=== PATIENT | male | born 1950 | race Two or more races ===

== ENCOUNTER 2017-03-31 01:24 | Inpatient (IN) | payer OTHER ==
[~2017-03-31] VITALS: Ht 172.7 cm; Wt 78.0 kg
[~2017-03-31 01:24] MED LIST: CITA-73 PO; CLON0.3T PO; TRAZ100T2 PO
[2017-03-31] MEDS ORDERED: IBUPROFEN 600 MG TAB PO ONE (01:45)
[2017-03-31] MEDS ORDERED: cefTRIAXone SOD 1,000 MG VL IM ONE (03:00)
[2017-03-31 03:16] LABS: Hemoglobin 14.5 g/dL (13.5-17.5)
[2017-03-31 03:17] LABS: Basophils # (auto) 0 uL; Basophils % (auto) 0.2 % (0.0-2.0); Eosinophils # (auto) 0 uL; Lymphocytes # (auto) 5.2 uL; Lymphocytes % (auto) 35.6 % (10.0-50.0); Mean Corpuscular Hemoglobin 34.8 pg (28.0-32.0); Mean Corpuscular Hgb Conc. 34.5 g/dL (32.0-36.0); Monocytes # (auto) 0.8 uL; Monocytes % (auto) 5.8 % (0.0-12.0); Neutrophils # (auto) 8.5 uL; Neutrophils % (auto) 58.4 % (37.0-80.0); Nucleated Red Blood Cells % 0.4 %; Platelet Count (auto) 122 10^3/uL (140-450); Red Blood Cells 4.15 10^6/uL (4.5-5.90); Red Cell Distribution Width 12.8 % (11.8-14.3); White Blood Cell 14.5 10^3/uL (4.4-10.8)
[2017-03-31 05:07] LABS: Alanine Aminotransferase 25 U/L (16-61); Albumin 3.6 g/dL (3.4-5.0); Anion Gap 10 (5-15); Aspartate Aminotransferase 23 U/L (15-37); BUN/Creatinine Ratio 22.3; Blood Urea Nitrogen 21 mg/dL (7-18); Calcium 8.1 mg/dL (8.5-10.1); Carbon Dioxide 21 mmol/L (21-32); Chloride 106 mmol/L (98-107); GFR African American 104 mL/min; GFR Non-African American 86 mL/min; Glucose 111 mg/dL (74-106); Potassium 3.5 mmol/L (3.5-5.1); Sodium 137 mmol/L (136-145)
[2017-03-31 05:12] LABS: Alkaline Phosphatase 69 U/L (45-117); Bilirubin, Total 0.8 mg/dL (0.2-1.0); Total Protein 7.3 g/dL (6.4-8.2)
[2017-03-31 05:24] LABS: INR 1.02 (0.9-1.15); Partial Thromboplastin Time 35.2 sec (22.64-33.71); Prothrombin Time 11.1 sec (9.37-12.3)
[2017-03-31] MEDS ORDERED: ACETAMINOPHEN 325 MG TAB PO PRN (06:30)
[2017-03-31] MEDS ORDERED: TEMAZEPAM 15 MG CAP PO PRN (06:30)
[2017-03-31] MEDS ORDERED: HYDROcodone-ACET 5/325MG TAB PO PRN (06:30)
[2017-03-31] MEDS ORDERED: ALBUTEROL SULF 2.5 MG/0.5ML(0.5%) NEB SOLN NEB PRN (06:30)
[2017-03-31] MEDS ORDERED: ONDANSETRON HCL 4 MG/2 ML VIAL IV PRN (06:30)
[2017-03-31] MEDS ORDERED: methylPREDNISolone SOD SUCC 125 MG/2 ML VL IV ONE (06:30)
[2017-03-31] MEDS ORDERED: SODIUM CHLORIDE 0.9% 500 ML IV ONE (06:45)
[2017-03-31 06:55] VITALS: BP 101/62
[2017-03-31] MEDS: SODIUM CHLORIDE 0.9% 1,000 ML IV SCH ×2 (07:00→22:09)
[2017-03-31] MEDS: CITALOPRAM HYDROBR 20 MG TAB PO SCH (10:05)
[2017-03-31] MEDS: cloNIDine HCL 0.1 MG TAB PO SCH (10:05)
[2017-03-31] MEDS: FAMOTIDINE 20 MG TAB PO SCH ×2 (10:05→21:46)
[2017-03-31] MEDS: ENOXAPARIN SOD 40 MG/0.4 ML SYRINGE SC SCH (10:20)
[2017-03-31] MEDS: LEVOFLOXACIN 750MG 150 ML IV SCH (10:51)
[2017-03-31 19:50] VITALS: BP 129/63
[2017-03-31] MEDS: methylPREDNISolone SOD SUCC 125 MG/2 ML VL IV SCH (21:47)
[2017-03-31] MEDS ORDERED: traZODone HCL 50 MG TAB PO SCH (22:00)
[2017-03-31 22:55] VITALS: BP 129/63
[2017-03-31] MEDS ORDERED: PNEUMOCOCCAL VACC POLYS 25 MCG/0.5 ML VIAL IM ONE (23:45)
[2017-03-31] MEDS ORDERED: INFLUENZA QUAD 2017-2018 0.5 ML SYRG IM ONE (23:45)
[2017-04-01 00:07] LABS: Urine Bacteria NONE SEEN /hpf (None Seen); Urine Blood Negative /uL (Negative); Urine Mucus FEW (None Seen); Urine WBC 1 /hpf (0 - 3)
[2017-04-01 05:38] VITALS: BP 136/76
[2017-04-01 07:17] LABS: Basophils # (auto) 0 uL; Eosinophils # (auto) 0 uL; Red Blood Cells 3.77 10^6/uL (4.5-5.90)
[2017-04-01 07:19] LABS: Basophils % (auto) 0.1 % (0.0-2.0); Hematocrit 38.6 % (41.0-53.0); Hemoglobin 13.2 g/dL (13.5-17.5); Lymphocytes % (auto) 32.6 % (10.0-50.0); Mean Corpuscular Hemoglobin 34.9 pg (28.0-32.0); Mean Corpuscular Hgb Conc. 34.1 g/dL (32.0-36.0); Mean Corpuscular Volume 102.3 fL (80.0-100.0); Monocytes # (auto) 0.5 uL; Monocytes % (auto) 2.4 % (0.0-12.0); Neutrophils % (auto) 64.9 % (37.0-80.0); Nucleated Red Blood Cells % 0.3 %; Platelet Count (auto) 120 10^3/uL (140-450); Red Cell Distribution Width 12.8 % (11.8-14.3); White Blood Cell 21.6 10^3/uL (4.4-10.8)
[2017-04-01 07:44] LABS: Albumin 2.9 g/dL (3.4-5.0); BUN/Creatinine Ratio 29.7; Bilirubin, Total 0.4 mg/dL (0.2-1.0); Potassium 3.3 mmol/L (3.5-5.1); Total Protein 6.3 g/dL (6.4-8.2)
[2017-04-01] MEDS ORDERED: POTASSIUM CHL 20 Meq TABLET PO ONE (08:30)
[2017-04-01 08:53] VITALS: BP 161/88
[2017-04-01] MEDS: SODIUM CHLORIDE 0.9% 1,000 ML IV SCH (09:02)
[2017-04-01] MEDS: LEVOFLOXACIN 750MG 150 ML IV SCH (09:49)
[2017-04-01] MEDS: FAMOTIDINE 20 MG TAB PO SCH (09:57)
[2017-04-01] MEDS: CITALOPRAM HYDROBR 20 MG TAB PO SCH (09:57)
[2017-04-01] MEDS: methylPREDNISolone SOD SUCC 125 MG/2 ML VL IV SCH (09:58)
[2017-04-01] MEDS: ENOXAPARIN SOD 40 MG/0.4 ML SYRINGE SC SCH (10:00)
[2017-04-01] MEDS: cloNIDine HCL 0.1 MG TAB PO SCH (10:00)
== END 2017-04-01 13:56 | disposition home or self-care (01) | DRG 871 ==
LOC: ER 01:26 → OVERFLOW 01:27 → CENTRAL 19:50
PROVIDERS: ADMIT Nurse Practitioner; ATTEND Internal Medicine
DX: A41.9 Sepsis, unspecified organism (principal); J18.9 Pneumonia, unspecified organism; J98.11 Atelectasis; E87.6 Hypokalemia; F32.9 Major depressive disorder, single episode, unspecified; I10 Essential (primary) hypertension; I70.0 Atherosclerosis of aorta; Z28.21 Immunization not carried out because of patient refusal; Z80.9 Family history of malignant neoplasm, unspecified
CPT/HCPCS: 36415; 71046; 80053; 81001; 84484; 85025; 85610; 85730; 87040; 87400; 96372; 96374; 96375; J0696; J1956

== ENCOUNTER 2020-01-27 13:40 | Inpatient (IN) | payer OTHER ==
[~2020-01-27] VITALS: Ht 172.7 cm; Wt 85.6 kg
[~2020-01-27 13:40] MED LIST changes: -TRAZ100T2 PO; +TRAZ100T3 PO
[2020-01-27 14:18] LABS: Red Cell Distribution Width 13.4 % (11.8-14.3)
[2020-01-27 14:20] LABS: Hematocrit 43.9 % (41.0-53.0); Mean Corpuscular Hemoglobin 35.7 pg (28.0-32.0); Mean Corpuscular Hgb Conc. 34.3 g/dL (32.0-36.0); Mean Corpuscular Volume 104.2 fL (80.0-100.0); Platelet Count (auto) 157 10^3/uL (140-450); Red Blood Cells 4.22 10^6/uL (4.5-5.90)
[2020-01-27 14:29] LABS: White Blood Cell 33.6 10^3/uL (4.4-10.8)
[2020-01-27 14:31] LABS: Band Neutrophils % (manual) 0; Basophils % (manual) 0 (0.0-2.0); Blast Cells 0; Eosinophils % (manual) 0 (0-7); Metamyelocytes % 0; Myelocytes % 0; Promyelocytes % 0
[2020-01-27 14:35] LABS: Anion Gap 2 (5-15); Blood Urea Nitrogen 16 mg/dL (7-18); Calcium 8.7 mg/dL (8.5-10.1); Carbon Dioxide 26 mmol/L (21-32); Chloride 109 mmol/L (98-107); Glucose 119 mg/dL (74-106); Potassium 4.3 mmol/L (3.5-5.1); Sodium 137 mmol/L (136-145)
[2020-01-27 14:40] LABS: Alanine Aminotransferase 24 U/L (16-61); Alkaline Phosphatase 102 U/L (45-117); Aspartate Aminotransferase 17 U/L (15-37); BUN/Creatinine Ratio 14.7; Bilirubin, Total 0.4 mg/dL (0.2-1.0); GFR African American 87 mL/min; GFR Non-African American 72 mL/min; Total Protein 7.1 g/dL (6.4-8.2)
[2020-01-27 14:55] LABS: Lymphocytes % (manual) 57 (10.0-50.0); Monocytes % (manual) 4 (0-12); Reactive Lymphocytes 20
[2020-01-27] MEDS ORDERED: ASPirin 81 mg TAB PO ONE (17:00)
[2020-01-27] MEDS ORDERED: NITROGLYCERIN 0.4 MG SL TAB SL PRN ×2 (19:00→19:15)
[2020-01-27] MEDS ORDERED: LACTATED RINGER'S 1,000 ML IV ONE (19:00)
[2020-01-27] MEDS ORDERED: ENOXAPARIN SOD 40 MG/0.4 ML SYRINGE SC ONE (19:00)
[2020-01-27] MEDS ORDERED: MORPHINE SULF INJ 2 MG/ML SYRINGE 1ML IV PRN ×3 (19:00→19:15)
[2020-01-27] MEDS ORDERED: CLON-818 PO (19:11)
[2020-01-27] MEDS ORDERED: OLAN2.5T38 PO (19:11)
[2020-01-27] MEDS ORDERED: OMEG306C PO (19:11)
[2020-01-27] MEDS ORDERED: TRAZ-181 PO (19:11)
[2020-01-27] MEDS ORDERED: MULT1TAB65 PO (19:11)
[2020-01-27] MEDS ORDERED: ONDANSETRON HCL 4 MG/2 ML VIAL IV PRN (19:15)
[2020-01-27] MEDS ORDERED: ALUM & MAG HYDROX-SIMETH LIQ(MAALOX) 30 ML PO PRN (19:15)
[2020-01-27] MEDS ORDERED: ACETAMINOPHEN 325 MG TAB PO PRN (19:15)
[2020-01-27] MEDS ORDERED: LORazepam 0.5 MG TAB PO PRN (19:15)
[2020-01-27] MEDS ORDERED: DOCUSATE SOD 100 MG CAP PO PRN (19:15)
[2020-01-27] MEDS ORDERED: ALBUTEROL SULF 2.5 MG/0.5ML(0.5%) NEB SOLN NEB PRN (19:15)
[2020-01-27] MEDS ORDERED: methylPREDNISolone SOD SUCC 125 MG/2 ML VL IV ONE (19:15)
[2020-01-27] MEDS ORDERED: METOPROLOL SUCCINATE XL 50 MG TAB PO ONE (19:15)
[2020-01-27] MEDS ORDERED: cefTRIAXone 1GM/50ML D5W 50 ML IV ONE (19:15)
[2020-01-27] MEDS ORDERED: hydrALAZINE HCL 25 MG TAB PO PRN (19:15)
[2020-01-27] MEDS ORDERED: IPRATROPIUM BROM 0.5 MG/2.5ML INH SOL NEB ONE (19:15)
[2020-01-27] MEDS ORDERED: HYDROcodone-ACET 5/325MG TAB PO PRN (19:15)
[2020-01-27] MEDS ORDERED: AZITHROMYCIN 500MG/ 250ML 250 ML IV ONE (20:00)
[2020-01-27 20:04] LABS: Cholesterol 179 mg/dL (< 200)
[2020-01-27 20:07] LABS: HDL Cholesterol 32 mg/dL (40-59); LDL Cholesterol 125 mg/dL (< 100); Triglycerides 175 mg/dL (< 150)
[2020-01-27] MEDS: SODIUM CHLORIDE 0.9% 1,000 ML IV SCH (20:17)
[2020-01-27] MEDS ORDERED: IPRATROPIUM BROM 0.5 MG/2.5ML INH SOL NEB PRN (20:45)
[2020-01-27 20:57] LABS: INR 1.02 (0.9-1.15)
[2020-01-27 21:07] LABS: Urine Bacteria FEW /hpf (None Seen); Urine Blood Negative /uL (Negative); Urine Mucus FEW (None Seen); Urine Specific Gravity 1.019 (1.001-1.035); Urine WBC 1 /hpf (0 - 3)
[2020-01-27 21:20] LABS: Amphetamine Screen, Urine NEGATIVE (NEGATIVE); Barbiturate Scree,Urine NEGATIVE (NEGATIVE); Benzodiazephine Screen, Urine NEGATIVE (NEGATIVE); Cannabinoid Screen, Urine NEGATIVE (NEGATIVE); Cocaine Screen, Urine NEGATIVE (NEGATIVE); Opiate Scree,Urine NEGATIVE (NEGATIVE); Phencyclidine Screen, Urine NEGATIVE (NEGATIVE)
[2020-01-27] MEDS ORDERED: IPRATROPIUM BROM 0.5 MG/2.5ML INH SOL NEB SCH (22:00)
[2020-01-27] MEDS: methylPREDNISolone SOD SUCC 40 MG/ML VL IV SCH (22:45)
[2020-01-27] MEDS: traZODone HCL 50 MG TAB PO SCH (22:45)
[2020-01-27] MEDS: ATORVASTATIN 20 MG TAB PO SCH (22:45)
[2020-01-28] VITALS (10 sets, daily range): BP systolic 120–142; BP diastolic 69–89
--- NOTE | 2020-01-28 00:50 | NUR ---
pt got to floor from ED
[2020-01-28] MEDS: methylPREDNISolone SOD SUCC 40 MG/ML VL IV SCH ×3 (05:45→20:40)
[2020-01-28] MEDS ORDERED: FUROSEMIDE 20 MG/2 ML VIAL IV SCH (06:00)
--- NOTE | 2020-01-28 07:35 | NUR ---
Opening Shift Note Assumed care of patient, awake and alert. No S/S of distress/SOB or pain. Instructed on POC and to call for assist PRN, will continue to monitor for changes Q1hr and PRN.
--- NOTE | 2020-01-28 07:40 | NUR ---
closing note endorsed care to day RN, denies pain/distress at this time
--- NOTE | 2020-01-28 07:45 | NUR ---
pt set up a password
[2020-01-28] MEDS: cefTRIAXone 1GM/50ML D5W 50 ML IV SCH (09:11)
[2020-01-28] MEDS: SODIUM CHLORIDE 0.9% 1,000 ML IV SCH (09:11)
[2020-01-28] MEDS ORDERED: OLANZapine 5 MG TAB PO SCH (10:00)
[2020-01-28] MEDS: AZITHROMYCIN 500MG/ 250ML 250 ML IV SCH (10:25)
[2020-01-28] MEDS: MULTIPLE VITAMINS W/ MINERALS TAB PO SCH (10:25)
[2020-01-28] MEDS: ASPirin 81 mg TAB PO SCH (10:25)
[2020-01-28] MEDS: ENOXAPARIN SOD 40 MG/0.4 ML SYRINGE SC SCH (10:26)
[2020-01-28] MEDS ORDERED: IOHEXOL 350 MG/ML 100ML IJ ONE (11:12)
--- NOTE | 2020-01-28 11:16 | NUR ---
ROUNDS Dr Cunningham rounding on patient. Plan of care discussed including lab values, test results and new orders. Will carry out new orders. Cardio consult called into Dr Hearn by health unit supervisor.
--- NOTE | 2020-01-28 11:30 | NUR ---
COVID SWAB Call placed to lab for COVID swab, will obtain test once delivered.
--- NOTE | 2020-01-28 11:37 | NUR ---
RT NOTE: PRN BREATHING TX. NOT INDICATED AT THIS TIME. PT. DENIES ANY SOB. PT. HR 79, RR 20, POX 97% ON 3L N/C. BREATH SOUNDS ARE DIMINISHED T/O. PT. AWARE TO NOTIFY RN IF BREATHING TX. IS NEEDED.
--- NOTE | 2020-01-28 11:53 | NUR ---
CT Patient leaving unit via wheelchair for CT test. Will continue care once patient returns to unit.
--- NOTE | 2020-01-28 12:10 | NUR ---
CT/COVID Patient returned to unit. CT scan completed. COVID swab obtained and walked to lab.
--- NOTE | 2020-01-28 14:20 | NUR ---
ECHO ECHO performed at bedside.
--- NOTE | 2020-01-28 18:54 | NUR ---
Respiratory note: ASSESSED PT FOR PRN MED NEB TX. PT IS CURRENTLY ON 3 L/M NC: HR 77, RT 18, SPO2 95%. PT SHOWS NO S/S OF SOB OR RESPIRATORY DISTRESS. MED NEB TX NOT INDICATED AT THIS TIME. WILL CONTINUE TO MONITOR
--- NOTE | 2020-01-28 19:00 | NUR ---
SHIFT CHANGE Will continue care for patient. Patient sitting in bed watching TV. IV lines flushed and patent. Call light in reach.
[2020-01-28] MEDS: traZODone HCL 50 MG TAB PO SCH (20:40)
[2020-01-28] MEDS: ATORVASTATIN 20 MG TAB PO SCH (20:41)
--- NOTE | 2020-01-28 21:30 | NUR ---
Patient asking to continue home medication "clonidine", unsure of dose stating "I think 10". Patient does not have orders for medication at this time. Spoke with Dr Stan Leahy, telephone order read back and noted.
[2020-01-28] MEDS: cloNIDine HCL 0.1 MG TAB PO SCH (21:55)
--- NOTE | 2020-01-29 03:25 | NUR ---
ASSUMED CARE OF PATIENT PATIENT RESTING WITH EYES CLOSED. NO S/S OF DISTRESS OR SOB. BED LOCKED IN LOWEST POSITION, SIDE RAILS UP X2, CALL LIGHT IS IN REACH. WILL CONTINUE TO MONITOR FOR CHANGES.
[2020-01-29 05:00] VITALS: BP 126/71
[2020-01-29 06:03] LABS: Hemoglobin 13.5 g/dL (13.5-17.5); Red Cell Distribution Width 13.6 % (11.8-14.3)
[2020-01-29 06:06] LABS: Hematocrit 39.2 % (41.0-53.0); Mean Corpuscular Hemoglobin 36.1 pg (28.0-32.0); Mean Corpuscular Hgb Conc. 34.5 g/dL (32.0-36.0); Mean Corpuscular Volume 104.8 fL (80.0-100.0); Platelet Count (auto) 147 10^3/uL (140-450); Red Blood Cells 3.74 10^6/uL (4.5-5.90)
[2020-01-29] MEDS: methylPREDNISolone SOD SUCC 40 MG/ML VL IV SCH (06:08)
[2020-01-29 06:37] LABS: Basophils % (manual) 0 (0.0-2.0); Blast Cells 0; Eosinophils % (manual) 0 (0-7); Metamyelocytes % 0; Myelocytes % 0; Promyelocytes % 0; Reactive Lymphocytes 0
--- NOTE | 2020-01-29 06:40 | NUR ---
SPOKE WITH LAB REGARDING CRITICAL WBC LEVEL OF 49.0 PAGED TO UPDATE
--- NOTE | 2020-01-29 07:28 | NUR ---
Respiratory note: PT AWAKE, AND ALERT. NO RESPIRATORY DISTRESS NOTED. SPO2 96% ON 3L NC, HR 76, RR 18, BS CLEAR/DIMINISHED BILATERALLY. PRN MEDNEB TX NOT INDICATED AT THIS TIME. PT INFORMED TO PUSH CALL BUTTON IF INCREASED WOB, SOB, OR WHEEZING OCCURS. WILL CONTINUE TO MONITOR PT.
[2020-01-29 08:03] LABS: Band Neutrophils % (manual) 1; Lymphocytes % (manual) 79 (10.0-50.0); Monocytes % (manual) 4 (0-12)
[2020-01-29] MEDS: cefTRIAXone 1GM/50ML D5W 50 ML IV SCH (08:47)
[2020-01-29] MEDS: ENOXAPARIN SOD 40 MG/0.4 ML SYRINGE SC SCH (08:47)
[2020-01-29] MEDS: ASPirin 81 mg TAB PO SCH (08:48)
[2020-01-29] MEDS: MULTIPLE VITAMINS W/ MINERALS TAB PO SCH (08:48)
[2020-01-29 09:00] VITALS: BP 121/79
[2020-01-29] MEDS: AZITHROMYCIN 500MG/ 250ML 250 ML IV SCH (10:24)
[2020-01-29 13:00] VITALS: BP 128/67
[2020-01-29] MEDS ORDERED: ADENOSINE 72 MG in GIVE UN-DILUTED 0 ML IV STA (13:40)
[2020-01-29 17:00] VITALS: BP 134/71
--- NOTE | 2020-01-29 19:45 | NUR ---
PT ASSESSED, NO SOB NOTED. BS DIMINISHED BILATERALLY. PRN TX NOT INDICATED AT THIS TIME.
[2020-01-29] MEDS: OLANZapine 5 MG TAB PO SCH (20:02)
[2020-01-29] MEDS: ATORVASTATIN 20 MG TAB PO SCH (21:43)
[2020-01-29] MEDS: traZODone HCL 50 MG TAB PO SCH (21:43)
[2020-01-29] MEDS: cloNIDine HCL 0.1 MG TAB PO SCH (21:49)
[2020-01-29 22:00] VITALS: BP 134/80
[2020-01-30 05:00] VITALS: BP 104/71
--- NOTE | 2020-01-30 07:05 | NUR ---
PRN [place] TX NOT INDICATED AT THIS TIME. PT IS AWAKE, ALERT AND ORIENTED. PT IS ON RA, 94% O2 SATS, HR 81 BPM, BS ARE CLEAR TO AUSCULTATION. RESPIRATION IS EVEN AND NON LABORED. PT DENIES SOB OR ANY OTHER RESPIRATORY DISTRESS. PT INSTRUCTED TO CALL IF [place] TX IS INDICATED. PT VERBALIZED UNDERSTANDING. WILL CONTINUE TO MONITOR PT.
--- NOTE | 2020-01-30 07:35 | NUR ---
OPENING SHIFT NOTE ASSUMED CARE OF PATIENT, AWAKE AND ALERT. NO S/S OF DISTRESS OR SOB, NO PAIN NOTED. UPDATED ON POC AND INSTRUCTED TO CALL FOR ASSISTANCE, PATIENT VERBALIZED UNDERSTANDING. BED LOCKED IN LOWEST POSITION, SIDE RAILS UP X2, CALL LIGHT IS IN REACH. WILL CONTINUE TO MONITOR FOR CHANGES.
[2020-01-30] MEDS: ENOXAPARIN SOD 40 MG/0.4 ML SYRINGE SC SCH (08:59)
[2020-01-30] MEDS: cefTRIAXone 1GM/50ML D5W 50 ML IV SCH (08:59)
[2020-01-30] MEDS: ASPirin 81 mg TAB PO SCH (08:59)
[2020-01-30] MEDS: MULTIPLE VITAMINS W/ MINERALS TAB PO SCH (08:59)
[2020-01-30] MEDS: AZITHROMYCIN 500MG/ 250ML 250 ML IV SCH (08:59)
[2020-01-30 09:00] VITALS: BP 112/66
[2020-01-30 13:00] VITALS: BP 116/67
[2020-01-30 17:21] VITALS: BP 128/76
[2020-01-30] MEDS: ATORVASTATIN 20 MG TAB PO SCH (21:28)
[2020-01-30] MEDS: traZODone HCL 50 MG TAB PO SCH (21:28)
[2020-01-30] MEDS: cloNIDine HCL 0.1 MG TAB PO SCH (21:29)
[2020-01-30] MEDS: OLANZapine 5 MG TAB PO SCH (21:30)
[2020-01-30 22:00] VITALS: BP 128/78
[2020-01-31 04:28] VITALS: BP 122/72
[2020-01-31 05:00] VITALS: BP 102/59
--- NOTE | 2020-01-31 06:06 | NUR ---
RT NOTE PRN MED NEB TX NOT INDICATED AT THIS TIME. NO SIGNS OR SYMPTOMS OF RESPIRATORY DISTRESS NOTED. HR 89, RR 14, SPO2 95% ON RA, BS CLEAR.
--- NOTE | 2020-01-31 07:30 | NUR ---
Opening Shift Note Assumed care of patient, awake and alert. No S/S of distress/SOB or pain on room air. Instructed on POC and to call for assist PRN, will continue to monitor for changes Q1hr and PRN. Bed in low and locked position, rails up x2, no-slip socks on.
[2020-01-31 08:43] VITALS: BP 135/70
--- NOTE | 2020-01-31 09:00 | NUR ---
FAMILY CALL SPOKE TO PATIENTS DAUGHTER NATALEE, PASSWORD PROVIDED, UPDATED ON PLAN OF CARE, ALL QUESTIONS ANSWERED.
[2020-01-31] MEDS: MULTIPLE VITAMINS W/ MINERALS TAB PO SCH (09:28)
[2020-01-31] MEDS: ENOXAPARIN SOD 40 MG/0.4 ML SYRINGE SC SCH (09:28)
[2020-01-31] MEDS: ASPirin 81 mg TAB PO SCH (09:28)
--- NOTE | 2020-01-31 10:50 | NUR ---
DR Venita GONZALEZ AT BEDSIDE ORDERS FOR DISCHARGE, PRESCRIPTION FOR LIPITOR 40MG QHS WRITTEN.
--- NOTE | 2020-01-31 10:55 | NUR ---
Nutrition Assessment Est energy needs 4840-7658 kcal (20-25 kcal/kg BW 85.6kg) Est protein needs 68-86g (0.8-1g/kg BW 85.6kg) Will reassess prn. Addendum: 01/31/20 at [address] Amended: Links added.
[2020-01-31 11:05] VITALS: BP 135/70
--- NOTE | 2020-01-31 12:41 | NUR ---
DISCHARGE Discharge instructions given as ordered. Encourage to follow up with PMD as instructed. All questions and concerns addressed. Patient verbalized understanding. Medication reconciliation form completed and copy given to patient. IV removed with catheter intact, pressure dressing applied. Telemetry unit returned to ICU. Patient taken to vehicle via wheelchair with all personal belongings, accompanied by staff to family member. No distress noted at time of departure.
[2020-01-31 12:46] VITALS: BP 137/85
== END 2020-01-31 12:40 | disposition home or self-care (01) | DRG 190 ==
LOC: ER 13:40 → TELE 13:41 → TELE-WESTW 23:47
PROVIDERS: ADMIT Hospitalist; ATTEND Family Medicine
DX: J44.1 Chronic obstructive pulmonary disease with (acute) exacerbation (principal); J18.9 Pneumonia, unspecified organism; C91.10 Chronic lymphocytic leukemia of B-cell type not having achieved remission; J44.0 Chronic obstructive pulmonary disease with (acute) lower respiratory infection; F32.9 Major depressive disorder, single episode, unspecified; E78.5 Hyperlipidemia, unspecified; I10 Essential (primary) hypertension; E78.00 Pure hypercholesterolemia, unspecified; K21.9 Gastro-esophageal reflux disease without esophagitis; E66.3 Overweight; F17.200 Nicotine dependence, unspecified, uncomplicated; F03.90 Unspecified dementia, unspecified severity, without behavioral disturbance, psychotic disturbance, mood disturbance, and anxiety; Z20.828 Contact with and (suspected) exposure to other viral communicable diseases; Z79.899 Other long term (current) drug therapy; Z83.3 Family history of diabetes mellitus; Z85.828 Personal history of other malignant neoplasm of skin
CPT/HCPCS: 36415; 71046; 71275; 78452; 80053; 80061; 80307; 81001; 83036; 83605; 83735; 83880; 84443; 84484; 85007; 85027; 85379; 85540; 85610; 85730; 87040; 87086; 93005; 93017; 93306; 93970; 94640; 96365; 96368; 96372; 96375; G0378; J0153; J0696

== ENCOUNTER 2020-08-30 19:34 | Emergency (ER) | payer OTHER ==
[~2020-08-30] VITALS: Ht 172.7 cm; Wt 81.6 kg
[~2020-08-30 19:34] MED LIST changes: -CITA-73 PO; +CLON-818 PO; -CLON0.3T PO; +MULT1TAB65 PO; +OLAN2.5T38 PO; +OMEG306C PO; +TRAZ-181 PO; -TRAZ100T3 PO
[2020-08-30 19:54] VITALS: BP 118/76
== END 2020-08-30 20:26 | disposition home or self-care (01) ==
LOC: ER 19:39
DX: H57.89 Other specified disorders of eye and adnexa (principal); Z79.899 Other long term (current) drug therapy

== ENCOUNTER 2021-03-30 15:42 | Inpatient (IN) | payer OTHER ==
[~2021-03-30] VITALS: Ht 172.7 cm; Wt 74.0 kg
[2021-03-30 16:52] LABS: Hematocrit 37.2 % (41.0-53.0); Hemoglobin 12.9 g/dL (13.5-17.5); White Blood Cell 27.6 10^3/uL (4.4-10.8)
[2021-03-30 16:54] LABS: Mean Corpuscular Hemoglobin 35.5 pg (28.0-32.0); Mean Corpuscular Hgb Conc. 34.8 g/dL (32.0-36.0); Red Blood Cells 3.64 10^6/uL (4.5-5.90); Red Cell Distribution Width 13.8 % (11.8-14.3)
[2021-03-30 16:57] LABS: Band Neutrophils % (manual) 0; Basophils % (manual) 0 (0.0-2.0); Blast Cells 0; Eosinophils % (manual) 0 (0-7); Metamyelocytes % 0; Myelocytes % 0; Promyelocytes % 0
[2021-03-30 17:08] LABS: Albumin 3.2 g/dL (3.4-5.0); Calcium 7.9 mg/dL (8.5-10.1)
[2021-03-30 17:13] LABS: BUN/Creatinine Ratio 19.3; Bilirubin, Total 0.5 mg/dL (0.2-1.0); Total Protein 6.8 g/dL (6.4-8.2)
[2021-03-30 17:38] LABS: Lymphocytes % (manual) 76 (10.0-50.0); Monocytes % (manual) 2 (0-12); Reactive Lymphocytes 10
[2021-03-30] MEDS ORDERED: cefTRIAXone 1GM/50ML D5W 50 ML IV ONE (18:15)
[2021-03-30] MEDS ORDERED: AZITHROMYCIN 500MG/ 250ML 250 ML IV ONE (18:15)
[2021-03-30] MEDS ORDERED: DexAMETHasone SOD PHOS 10MG/1ML VIAL INJ IV ONE (18:15)
[2021-03-30] MEDS ORDERED: DOCUSATE SOD 100 MG CAP PO PRN (20:30)
[2021-03-30] MEDS ORDERED: ACETAMINOPHEN 500 MG TAB PO PRN (20:30)
[2021-03-30] MEDS ORDERED: ONDANSETRON HCL 4 MG/2 ML VIAL IV PRN (20:30)
[2021-03-30] MEDS: BUDESONIDE (INHALATION) 180 MCG IH IN SCH (22:00)
[2021-03-30] MEDS: FAMOTIDINE (10MG/ML) 2ML VL IV SCH (22:40)
[2021-03-30] MEDS ORDERED: NITROGLYCERIN 0.4 MG SL TAB SL PRN (22:45)
[2021-03-30] MEDS ORDERED: MORPHINE SULFATE INJECTION 2 MG/ML SYRG IV PRN (22:45)
[2021-03-30] MEDS: SODIUM CHLORIDE 0.9% 1,000 ML IV SCH (23:01)
[2021-03-31] MEDS: ALBUTEROL SULF HFA 90MCG INH 200DOSE IN PRN ×2 (06:08→19:20)
[2021-03-31] MEDS: BUDESONIDE (INHALATION) 180 MCG IH IN SCH ×2 (06:08→19:20)
[2021-03-31 08:43] LABS: Hemoglobin 13.3 g/dL (13.5-17.5)
[2021-03-31 08:47] LABS: Hematocrit 37.9 % (41.0-53.0); Mean Corpuscular Hemoglobin 35.5 pg (28.0-32.0); Mean Corpuscular Hgb Conc. 35.1 g/dL (32.0-36.0); Mean Corpuscular Volume 101.3 fL (80.0-100.0); Red Blood Cells 3.74 10^6/uL (4.5-5.90); Red Cell Distribution Width 13.6 % (11.8-14.3)
[2021-03-31 08:54] LABS: White Blood Cell 33.2 10^3/uL (4.4-10.8)
[2021-03-31 08:55] LABS: Basophils % (manual) 0 (0.0-2.0); Blast Cells 0; Eosinophils % (manual) 0 (0-7); Metamyelocytes % 0; Myelocytes % 0; Promyelocytes % 0
[2021-03-31 09:00] VITALS: BP 121/69
[2021-03-31 09:08] LABS: Albumin 2.8 g/dL (3.4-5.0); Calcium 8.2 mg/dL (8.5-10.1); Potassium 3.9 mmol/L (3.5-5.1)
[2021-03-31 09:11] LABS: BUN/Creatinine Ratio 23.3; Bilirubin, Total 0.3 mg/dL (0.2-1.0); Total Protein 6.3 g/dL (6.4-8.2)
[2021-03-31] MEDS: cefTRIAXone 1GM/50ML D5W 50 ML IV SCH (10:54)
[2021-03-31] MEDS: FAMOTIDINE (10MG/ML) 2ML VL IV SCH ×2 (10:55→22:26)
[2021-03-31] MEDS: DexAMETHasone SOD PHOS 10MG/1ML VIAL INJ IV SCH (10:55)
[2021-03-31] MEDS: ASCORBIC ACID 1,000 MG TAB PO SCH (10:55)
[2021-03-31] MEDS: ZINC SULFATE 220mg CAP or TAB PO SCH (10:55)
[2021-03-31] MEDS: AZITHROMYCIN 500MG/ 250ML 250 ML IV SCH (10:55)
[2021-03-31] MEDS: MULTIPLE VITAMIN TAB PO SCH (10:55)
[2021-03-31] MEDS: ENOXAPARIN SOD 40 MG/0.4 ML SYRINGE SC SCH (10:56)
[2021-03-31] MEDS: CHOLECALCIFEROL (VITD3) 2,000 UNIT CAP/TAB PO SCH (10:56)
[2021-03-31 13:00] VITALS: BP 131/70
[2021-03-31 14:15] LABS: Band Neutrophils % (manual) 2; Lymphocytes % (manual) 65 (10.0-50.0); Monocytes % (manual) 1 (0-12); Reactive Lymphocytes 15
[2021-03-31] MEDS: SODIUM CHLORIDE 0.9% 1,000 ML IV SCH (14:55)
[2021-03-31] MEDS ORDERED: REMDESIVIR PER PHARMACY 0 ML IV SCH (15:45)
[2021-03-31 17:00] VITALS: BP 141/76
[2021-03-31] MEDS ORDERED: REMDESIVIR 200 MG in NS 210ml LOADING DOSE ADULT IV ONE (18:00)
[2021-03-31 22:00] VITALS: BP 129/73
[2021-04-01] MEDS: ALBUTEROL SULF HFA 90MCG INH 200DOSE IN PRN ×3 (02:39→19:23)
[2021-04-01 05:00] VITALS: BP 129/83
[2021-04-01] MEDS: BUDESONIDE (INHALATION) 180 MCG IH IN SCH ×2 (05:31→19:23)
[2021-04-01 06:17] LABS: Hematocrit 37.3 % (41.0-53.0); Hemoglobin 12.9 g/dL (13.5-17.5); Mean Corpuscular Hemoglobin 35.2 pg (28.0-32.0); Mean Corpuscular Hgb Conc. 34.6 g/dL (32.0-36.0); Mean Corpuscular Volume 101.7 fL (80.0-100.0); Red Blood Cells 3.67 10^6/uL (4.5-5.90); Red Cell Distribution Width 13.6 % (11.8-14.3)
[2021-04-01 06:22] LABS: White Blood Cell 60.7 10^3/uL (4.4-10.8)
[2021-04-01 06:23] LABS: Basophils % (manual) 0 (0.0-2.0); Blast Cells 0; Calcium 8.3 mg/dL (8.5-10.1); Eosinophils % (manual) 0 (0-7); Metamyelocytes % 0; Myelocytes % 0; Promyelocytes % 0
[2021-04-01 06:27] LABS: BUN/Creatinine Ratio 20.8; Bilirubin, Total 0.4 mg/dL (0.2-1.0); Total Protein 6.4 g/dL (6.4-8.2)
[2021-04-01 09:00] VITALS: BP 146/78
[2021-04-01] MEDS: cefTRIAXone 1GM/50ML D5W 50 ML IV SCH (09:15)
[2021-04-01 09:23] LABS: Band Neutrophils % (manual) 3; Lymphocytes % (manual) 83 (10.0-50.0); Monocytes % (manual) 2 (0-12); Reactive Lymphocytes 2
[2021-04-01] MEDS: MULTIPLE VITAMIN TAB PO SCH (09:36)
[2021-04-01] MEDS: DexAMETHasone SOD PHOS 10MG/1ML VIAL INJ IV SCH (09:36)
[2021-04-01] MEDS: FAMOTIDINE (10MG/ML) 2ML VL IV SCH ×2 (09:36→21:39)
[2021-04-01] MEDS: ZINC SULFATE 220mg CAP or TAB PO SCH (09:36)
[2021-04-01] MEDS: ENOXAPARIN SOD 40 MG/0.4 ML SYRINGE SC SCH ×2 (09:37→21:39)
[2021-04-01] MEDS: CHOLECALCIFEROL (VITD3) 2,000 UNIT CAP/TAB PO SCH (09:37)
[2021-04-01] MEDS: ASCORBIC ACID 1,000 MG TAB PO SCH (09:37)
[2021-04-01] MEDS: AZITHROMYCIN 500MG/ 250ML 250 ML IV SCH (10:03)
[2021-04-01] MEDS ORDERED: LATA0.0019 EACHEYE (10:54)
[2021-04-01] MEDS ORDERED: OLANZapine 5 MG TAB PO ONE (12:15)
[2021-04-01 13:00] VITALS: BP 138/85
[2021-04-01] MEDS: PROMETHAZINE W/CODEINE 5 ML ORAL SYRUP PO PRN ×2 (15:33→21:40)
[2021-04-01] MEDS: THROAT LOZENGES(CEPASTAT) MT PRN ×2 (15:46→21:39)
[2021-04-01] MEDS: REMDESIVIR 100mg 100 MG in SODIUM CHL 0.9% 230 ML IV SCH (16:00)
[2021-04-01 17:00] VITALS: BP 151/89
[2021-04-01] MEDS: traZODone HCL 50 MG TAB PO SCH (21:39)
[2021-04-01 22:00] VITALS: BP 151/69
[2021-04-02 05:00] VITALS: BP 145/80
[2021-04-02 06:59] LABS: Hemoglobin 12.5 g/dL (13.5-17.5)
[2021-04-02] MEDS: THROAT LOZENGES(CEPASTAT) MT PRN (07:01)
[2021-04-02] MEDS: PROMETHAZINE W/CODEINE 5 ML ORAL SYRUP PO PRN ×2 (07:01→13:10)
[2021-04-02 07:04] LABS: Albumin 2.7 g/dL (3.4-5.0); Potassium 4.3 mmol/L (3.5-5.1)
[2021-04-02 07:04] LABS: Hematocrit 37.8 % (41.0-53.0); Mean Corpuscular Hemoglobin 33.8 pg (28.0-32.0); Mean Corpuscular Hgb Conc. 33.1 g/dL (32.0-36.0); Mean Corpuscular Volume 102.3 fL (80.0-100.0); Red Blood Cells 3.69 10^6/uL (4.5-5.90); Red Cell Distribution Width 13.7 % (11.8-14.3)
[2021-04-02 07:09] LABS: BUN/Creatinine Ratio 22.8; Bilirubin, Total 0.5 mg/dL (0.2-1.0); Total Protein 6.2 g/dL (6.4-8.2)
[2021-04-02 07:18] LABS: White Blood Cell 62.5 10^3/uL (4.4-10.8)
[2021-04-02 07:19] LABS: Basophils % (manual) 0 (0.0-2.0); Eosinophils % (manual) 0 (0-7); Metamyelocytes % 0; Myelocytes % 0; Promyelocytes % 0
[2021-04-02 08:30] VITALS: BP 149/85
[2021-04-02] MEDS: cefTRIAXone 1GM/50ML D5W 50 ML IV SCH (08:54)
[2021-04-02] MEDS: ALBUTEROL SULF HFA 90MCG INH 200DOSE IN PRN (09:22)
[2021-04-02] MEDS: BUDESONIDE (INHALATION) 180 MCG IH IN SCH ×2 (09:22→21:27)
[2021-04-02] MEDS: FAMOTIDINE (10MG/ML) 2ML VL IV SCH ×2 (10:08→22:26)
[2021-04-02] MEDS: DexAMETHasone SOD PHOS 10MG/1ML VIAL INJ IV SCH (10:08)
[2021-04-02] MEDS: MULTIPLE VITAMIN TAB PO SCH (10:09)
[2021-04-02] MEDS: OLANZapine 5 MG TAB PO SCH (10:09)
[2021-04-02] MEDS: ENOXAPARIN SOD 40 MG/0.4 ML SYRINGE SC SCH ×2 (10:10→22:26)
[2021-04-02] MEDS: ASCORBIC ACID 1,000 MG TAB PO SCH (10:10)
[2021-04-02] MEDS: CHOLECALCIFEROL (VITD3) 2,000 UNIT CAP/TAB PO SCH (10:10)
[2021-04-02] MEDS: ZINC SULFATE 220mg CAP or TAB PO SCH (10:10)
[2021-04-02] MEDS: AZITHROMYCIN 500MG/ 250ML 250 ML IV SCH (10:10)
[2021-04-02 10:20] LABS: Band Neutrophils % (manual) 1; Blast Cells 5; Lymphocytes % (manual) 63 (10.0-50.0); Monocytes % (manual) 2 (0-12); Reactive Lymphocytes 20
[2021-04-02] MEDS: HYDROcodone-ACET 5/325MG TAB PO PRN (11:18)
[2021-04-02 12:30] VITALS: BP 125/66
[2021-04-02] MEDS: REMDESIVIR 100mg 100 MG in SODIUM CHL 0.9% 230 ML IV SCH (15:14)
[2021-04-02 17:00] VITALS: BP 147/80
[2021-04-02] MEDS ORDERED: GENTAMICIN OPTH sol 0.3% 5ml EACHEYE SCH (18:00)
[2021-04-02] MEDS: GENTAMICIN OPTH sol 0.3% 5ml EACHEYE SCH ×2 (18:59→22:26)
[2021-04-02 22:00] VITALS: BP 139/77
[2021-04-02] MEDS: traZODone HCL 50 MG TAB PO SCH (22:26)
[2021-04-03] MEDS: GENTAMICIN OPTH sol 0.3% 5ml EACHEYE SCH ×6 (02:00→22:12)
[2021-04-03 05:24] LABS: Mean Corpuscular Hemoglobin 34.6 pg (28.0-32.0); Mean Corpuscular Hgb Conc. 33.9 g/dL (32.0-36.0)
[2021-04-03 05:29] LABS: Hematocrit 35.7 % (41.0-53.0); Hemoglobin 12.1 g/dL (13.5-17.5); Mean Corpuscular Volume 101.8 fL (80.0-100.0); Red Cell Distribution Width 13.9 % (11.8-14.3)
[2021-04-03 06:10] LABS: Albumin 2.6 g/dL (3.4-5.0)
[2021-04-03 06:13] LABS: BUN/Creatinine Ratio 32.9; Bilirubin, Total 0.7 mg/dL (0.2-1.0); Total Protein 5.5 g/dL (6.4-8.2)
[2021-04-03] MEDS: BUDESONIDE (INHALATION) 180 MCG IH IN SCH ×2 (06:36→19:10)
[2021-04-03] MEDS: ALBUTEROL SULF HFA 90MCG INH 200DOSE IN PRN ×2 (06:37→19:49)
[2021-04-03 06:43] LABS: White Blood Cell 68.2 10^3/uL (4.4-10.8)
[2021-04-03 06:45] LABS: Basophils % (manual) 0 (0.0-2.0); Eosinophils % (manual) 0 (0-7); Metamyelocytes % 0; Myelocytes % 0; Promyelocytes % 0
[2021-04-03 08:27] LABS: Band Neutrophils % (manual) 2; Blast Cells 6; Lymphocytes % (manual) 56 (10.0-50.0); Monocytes % (manual) 1 (0-12); Reactive Lymphocytes 20
[2021-04-03 09:00] VITALS: BP 119/61
[2021-04-03] MEDS: cefTRIAXone 1GM/50ML D5W 50 ML IV SCH (10:30)
[2021-04-03] MEDS: ZINC SULFATE 220mg CAP or TAB PO SCH (10:31)
[2021-04-03] MEDS: FAMOTIDINE (10MG/ML) 2ML VL IV SCH ×2 (10:31→22:13)
[2021-04-03] MEDS: DexAMETHasone SOD PHOS 10MG/1ML VIAL INJ IV SCH (10:31)
[2021-04-03] MEDS: AZITHROMYCIN 500MG/ 250ML 250 ML IV SCH (10:31)
[2021-04-03] MEDS: CHOLECALCIFEROL (VITD3) 2,000 UNIT CAP/TAB PO SCH (10:32)
[2021-04-03] MEDS: MULTIPLE VITAMIN TAB PO SCH (10:32)
[2021-04-03] MEDS: ASCORBIC ACID 1,000 MG TAB PO SCH (10:32)
[2021-04-03] MEDS: OLANZapine 5 MG TAB PO SCH (10:32)
[2021-04-03] MEDS: ENOXAPARIN SOD 40 MG/0.4 ML SYRINGE SC SCH ×2 (10:33→22:13)
[2021-04-03 11:24] LABS: Folate (Folic Acid) 16.54 ng/mL (5.38-24)
[2021-04-03] MEDS ORDERED: POTASSIUM CHL 20 Meq TABLET PO ONE (11:45)
[2021-04-03] MEDS ORDERED: FUROSEMIDE 20 MG/2 ML VIAL IV ONE (11:45)
[2021-04-03] MEDS: REMDESIVIR 100mg 100 MG in SODIUM CHL 0.9% 230 ML IV SCH (16:00)
[2021-04-03 17:30] VITALS: BP 128/78
[2021-04-03 22:00] VITALS: BP 149/91
[2021-04-03] MEDS: traZODone HCL 50 MG TAB PO SCH (22:13)
[2021-04-03] MEDS: PROMETHAZINE W/CODEINE 5 ML ORAL SYRUP PO PRN (22:14)
[2021-04-04] MEDS: GENTAMICIN OPTH sol 0.3% 5ml EACHEYE SCH ×6 (02:12→21:33)
[2021-04-04] MEDS: ALBUTEROL SULF HFA 90MCG INH 200DOSE IN PRN ×2 (05:52→21:37)
[2021-04-04] MEDS: BUDESONIDE (INHALATION) 180 MCG IH IN SCH ×2 (05:52→21:37)
[2021-04-04 06:12] LABS: Hemoglobin 12.5 g/dL (13.5-17.5)
[2021-04-04 06:17] LABS: Hematocrit 37.6 % (41.0-53.0); Mean Corpuscular Hemoglobin 34.1 pg (28.0-32.0); Mean Corpuscular Hgb Conc. 33.3 g/dL (32.0-36.0); Mean Corpuscular Volume 102.4 fL (80.0-100.0); Red Blood Cells 3.67 10^6/uL (4.5-5.90); Red Cell Distribution Width 13.7 % (11.8-14.3)
[2021-04-04 06:25] LABS: White Blood Cell 88.6 10^3/uL (4.4-10.8)
[2021-04-04 06:26] LABS: Band Neutrophils % (manual) 0; Basophils % (manual) 0 (0.0-2.0); Eosinophils % (manual) 0 (0-7); Metamyelocytes % 0; Myelocytes % 0; Promyelocytes % 0
[2021-04-04 06:53] LABS: Potassium 4.2 mmol/L (3.5-5.1)
[2021-04-04 07:05] LABS: Albumin 2.6 g/dL (3.4-5.0); BUN/Creatinine Ratio 34.7; Bilirubin, Total 0.6 mg/dL (0.2-1.0); Calcium 8.2 mg/dL (8.5-10.1); Total Protein 5.5 g/dL (6.4-8.2)
[2021-04-04 08:41] LABS: Lymphocytes % (manual) 73 (10.0-50.0)
[2021-04-04 08:42] LABS: Blast Cells 2; Monocytes % (manual) 1 (0-12); Reactive Lymphocytes 18
[2021-04-04 09:00] VITALS: BP 130/70
[2021-04-04] MEDS: cefTRIAXone 1GM/50ML D5W 50 ML IV SCH (10:56)
[2021-04-04] MEDS: DexAMETHasone SOD PHOS 4 MG/1ML SDV INJ IV SCH (10:57)
[2021-04-04] MEDS: FAMOTIDINE (10MG/ML) 2ML VL IV SCH ×2 (10:57→21:32)
[2021-04-04] MEDS: MULTIPLE VITAMIN TAB PO SCH (10:58)
[2021-04-04] MEDS: ZINC SULFATE 220mg CAP or TAB PO SCH (10:58)
[2021-04-04] MEDS: AZITHROMYCIN 500MG/ 250ML 250 ML IV SCH (10:58)
[2021-04-04] MEDS: ASCORBIC ACID 1,000 MG TAB PO SCH (10:58)
[2021-04-04] MEDS: OLANZapine 5 MG TAB PO SCH (10:59)
[2021-04-04] MEDS: CHOLECALCIFEROL (VITD3) 2,000 UNIT CAP/TAB PO SCH (10:59)
[2021-04-04] MEDS: ENOXAPARIN SOD 40 MG/0.4 ML SYRINGE SC SCH ×2 (11:00→21:31)
[2021-04-04] MEDS: THROAT LOZENGES(CEPASTAT) MT PRN ×2 (11:26→17:49)
[2021-04-04] MEDS: PROMETHAZINE W/CODEINE 5 ML ORAL SYRUP PO PRN ×3 (11:27→21:30)
[2021-04-04 13:00] VITALS: BP 122/85
[2021-04-04] MEDS ORDERED: FUROSEMIDE 20 MG/2 ML VIAL IV ONE (13:00)
[2021-04-04] MEDS ORDERED: POTASSIUM CHL 20 Meq TABLET PO ONE (13:00)
[2021-04-04] MEDS: REMDESIVIR 100mg 100 MG in SODIUM CHL 0.9% 230 ML IV SCH (15:18)
[2021-04-04 17:00] VITALS: BP 120/65
[2021-04-04] MEDS: traZODone HCL 50 MG TAB PO SCH (21:31)
[2021-04-04 21:59] VITALS: BP 128/90
[2021-04-05] MEDS: GENTAMICIN OPTH sol 0.3% 5ml EACHEYE SCH ×6 (02:14→22:10)
[2021-04-05] MEDS: PROMETHAZINE W/CODEINE 5 ML ORAL SYRUP PO PRN (03:36)
[2021-04-05 05:00] VITALS: BP 127/67
[2021-04-05 06:11] LABS: Red Blood Cells 4.14 10^6/uL (4.5-5.90)
[2021-04-05 06:17] LABS: Hematocrit 43.1 % (41.0-53.0); Hemoglobin 13.8 g/dL (13.5-17.5); Mean Corpuscular Hemoglobin 33.3 pg (28.0-32.0); Mean Corpuscular Volume 104.1 fL (80.0-100.0); Red Cell Distribution Width 14.1 % (11.8-14.3)
[2021-04-05 06:32] LABS: White Blood Cell 126.9 10^3/uL (4.4-10.8)
[2021-04-05 06:33] LABS: Band Neutrophils % (manual) 0; Basophils % (manual) 0 (0.0-2.0); Blast Cells 0; Eosinophils % (manual) 0 (0-7); Metamyelocytes % 0; Monocytes % (manual) 0 (0-12); Myelocytes % 0; Promyelocytes % 0
[2021-04-05] MEDS: BUDESONIDE (INHALATION) 180 MCG IH IN SCH ×2 (06:59→22:50)
[2021-04-05] MEDS: ALBUTEROL SULF HFA 90MCG INH 200DOSE IN PRN (06:59)
[2021-04-05 07:50] LABS: Lymphocytes % (manual) 81 (10.0-50.0); Reactive Lymphocytes 12
[2021-04-05 10:02] VITALS: BP 125/72
[2021-04-05] MEDS: DexAMETHasone SOD PHOS 4 MG/1ML SDV INJ IV SCH (10:06)
[2021-04-05] MEDS: ZINC SULFATE 220mg CAP or TAB PO SCH (10:07)
[2021-04-05] MEDS: FUROSEMIDE 20 MG/2 ML VIAL IV SCH (10:07)
[2021-04-05] MEDS: FAMOTIDINE (10MG/ML) 2ML VL IV SCH ×2 (10:07→22:10)
[2021-04-05] MEDS: MULTIPLE VITAMIN TAB PO SCH (10:07)
[2021-04-05] MEDS: ASCORBIC ACID 1,000 MG TAB PO SCH (10:07)
[2021-04-05] MEDS: CHOLECALCIFEROL (VITD3) 2,000 UNIT CAP/TAB PO SCH (10:07)
[2021-04-05] MEDS: POTASSIUM CHL 20 Meq TABLET PO SCH (10:07)
[2021-04-05] MEDS: cefTRIAXone 1GM/50ML D5W 50 ML IV SCH (10:08)
[2021-04-05] MEDS: THROAT LOZENGES(CEPASTAT) MT PRN (10:08)
[2021-04-05] MEDS: OLANZapine 5 MG TAB PO SCH (10:08)
[2021-04-05] MEDS: ENOXAPARIN SOD 40 MG/0.4 ML SYRINGE SC SCH ×2 (10:08→22:10)
[2021-04-05] MEDS ORDERED: PIPERACILLIN-TAZOB 3.375GM 100 ML IV ONE (12:45)
[2021-04-05] MEDS: LORazepam 2MG/ML-1ML VIAL IV PRN ×2 (13:34→23:02)
[2021-04-05 15:07] VITALS: BP 118/69
[2021-04-05 16:54] VITALS: BP 110/72
[2021-04-05 21:59] VITALS: BP 137/87
[2021-04-05] MEDS: traZODone HCL 50 MG TAB PO SCH (22:10)
[2021-04-05] MEDS: PIPERACILLIN-TAZOB 3.375GM 100 ML IV SCH (22:10)
[2021-04-06] MEDS: ALBUTEROL SULF HFA 90MCG INH 200DOSE IN PRN ×2 (00:46→09:11)
[2021-04-06] MEDS: GENTAMICIN OPTH sol 0.3% 5ml EACHEYE SCH ×6 (01:52→21:11)
[2021-04-06 05:00] VITALS: BP 143/82
[2021-04-06] MEDS: PIPERACILLIN-TAZOB 3.375GM 100 ML IV SCH ×3 (05:44→21:10)
[2021-04-06 06:12] LABS: Hematocrit 42.4 % (41.0-53.0); Hemoglobin 13.6 g/dL (13.5-17.5); Mean Corpuscular Hemoglobin 33.6 pg (28.0-32.0); Mean Corpuscular Hgb Conc. 32.1 g/dL (32.0-36.0); Mean Corpuscular Volume 104.8 fL (80.0-100.0); Red Blood Cells 4.05 10^6/uL (4.5-5.90); Red Cell Distribution Width 13.9 % (11.8-14.3)
[2021-04-06 06:15] LABS: Band Neutrophils % (manual) 0; Basophils % (manual) 0 (0.0-2.0); Blast Cells 0; Eosinophils % (manual) 0 (0-7); Metamyelocytes % 0; Monocytes % (manual) 0 (0-12); Myelocytes % 0; Promyelocytes % 0; White Blood Cell 124.2 10^3/uL (4.4-10.8)
[2021-04-06 07:40] LABS: Lymphocytes % (manual) 93 (10.0-50.0); Reactive Lymphocytes 4
[2021-04-06 09:00] VITALS: BP 142/89
[2021-04-06] MEDS: BUDESONIDE (INHALATION) 180 MCG IH IN SCH ×2 (09:11→21:51)
[2021-04-06] MEDS: FAMOTIDINE (10MG/ML) 2ML VL IV SCH ×2 (09:16→21:09)
[2021-04-06] MEDS: LORazepam 2MG/ML-1ML VIAL IV PRN (09:16)
[2021-04-06] MEDS: ENOXAPARIN SOD 40 MG/0.4 ML SYRINGE SC SCH ×2 (09:16→21:10)
[2021-04-06] MEDS: PROMETHAZINE W/CODEINE 5 ML ORAL SYRUP PO PRN ×2 (09:16→20:24)
[2021-04-06] MEDS: DexAMETHasone SOD PHOS 4 MG/1ML SDV INJ IV SCH (09:17)
[2021-04-06] MEDS: POTASSIUM CHL 20 Meq TABLET PO SCH (09:17)
[2021-04-06] MEDS: CHOLECALCIFEROL (VITD3) 2,000 UNIT CAP/TAB PO SCH (09:17)
[2021-04-06] MEDS: OLANZapine 5 MG TAB PO SCH (09:18)
[2021-04-06] MEDS: ASCORBIC ACID 1,000 MG TAB PO SCH (09:18)
[2021-04-06] MEDS: MULTIPLE VITAMIN TAB PO SCH (09:18)
[2021-04-06] MEDS: ZINC SULFATE 220mg CAP or TAB PO SCH (09:18)
[2021-04-06] MEDS: FUROSEMIDE 20 MG/2 ML VIAL IV SCH (09:19)
[2021-04-06 10:31] LABS: BUN/Creatinine Ratio 24.7; Calcium 7.9 mg/dL (8.5-10.1); Potassium 3.7 mmol/L (3.5-5.1)
[2021-04-06] MEDS: SALINE 0.65 % NASAL SPRAY 45ML BOTTLE EACHNOSTRI SCH ×3 (12:00→21:10)
[2021-04-06 12:30] VITALS: BP 124/74
[2021-04-06] MEDS: HYDROcodone-ACET 5/325MG TAB PO PRN (13:10)
[2021-04-06 17:00] VITALS: BP 106/67
[2021-04-06] MEDS: traZODone HCL 50 MG TAB PO SCH (21:09)
[2021-04-06 22:00] VITALS: BP 111/76
[2021-04-07] MEDS: GENTAMICIN OPTH sol 0.3% 5ml EACHEYE SCH ×4 (02:38→14:00)
[2021-04-07 05:00] VITALS: BP 96/62
[2021-04-07] MEDS: PIPERACILLIN-TAZOB 3.375GM 100 ML IV SCH ×3 (05:19→22:48)
[2021-04-07] MEDS: SALINE 0.65 % NASAL SPRAY 45ML BOTTLE EACHNOSTRI SCH ×4 (05:20→22:48)
[2021-04-07] MEDS: PROMETHAZINE W/CODEINE 5 ML ORAL SYRUP PO PRN ×2 (05:46→19:19)
[2021-04-07] MEDS: ALBUTEROL SULF HFA 90MCG INH 200DOSE IN PRN ×2 (07:01→23:07)
[2021-04-07] MEDS: BUDESONIDE (INHALATION) 180 MCG IH IN SCH ×2 (07:01→22:09)
[2021-04-07 07:34] LABS: Hemoglobin 12.7 g/dL (13.5-17.5)
[2021-04-07 07:37] LABS: Hematocrit 39.2 % (41.0-53.0); Mean Corpuscular Hgb Conc. 32.4 g/dL (32.0-36.0); Mean Corpuscular Volume 105.1 fL (80.0-100.0); Red Blood Cells 3.73 10^6/uL (4.5-5.90)
[2021-04-07 07:40] LABS: Potassium 4.2 mmol/L (3.5-5.1)
[2021-04-07 07:57] LABS: White Blood Cell 124.7 10^3/uL (4.4-10.8)
[2021-04-07 07:58] LABS: Basophils % (manual) 0 (0.0-2.0); Blast Cells 0; Eosinophils % (manual) 0 (0-7); Metamyelocytes % 0; Myelocytes % 0; Promyelocytes % 0
[2021-04-07 08:04] LABS: BUN/Creatinine Ratio 28.8; Calcium 8.1 mg/dL (8.5-10.1)
[2021-04-07 09:00] VITALS: BP 109/74
[2021-04-07 09:46] LABS: Band Neutrophils % (manual) 1; Lymphocytes % (manual) 67 (10.0-50.0); Monocytes % (manual) 1 (0-12); Reactive Lymphocytes 20
[2021-04-07] MEDS: DexAMETHasone SOD PHOS 4 MG/1ML SDV INJ IV SCH (10:37)
[2021-04-07] MEDS: FUROSEMIDE 20 MG/2 ML VIAL IV SCH (10:38)
[2021-04-07] MEDS: ENOXAPARIN SOD 40 MG/0.4 ML SYRINGE SC SCH ×2 (10:39→22:48)
[2021-04-07] MEDS: POTASSIUM CHL 20 Meq TABLET PO SCH (10:40)
[2021-04-07] MEDS: CHOLECALCIFEROL (VITD3) 2,000 UNIT CAP/TAB PO SCH (10:40)
[2021-04-07] MEDS: ZINC SULFATE 220mg CAP or TAB PO SCH (10:40)
[2021-04-07] MEDS: MULTIPLE VITAMIN TAB PO SCH (10:40)
[2021-04-07] MEDS: OLANZapine 5 MG TAB PO SCH (10:40)
[2021-04-07] MEDS: FAMOTIDINE (10MG/ML) 2ML VL IV SCH ×2 (10:41→22:48)
[2021-04-07] MEDS: ASCORBIC ACID 1,000 MG TAB PO SCH (10:41)
[2021-04-07 13:00] VITALS: BP 119/73
[2021-04-07 17:00] VITALS: BP 113/69
[2021-04-07 22:00] VITALS: BP 133/86
[2021-04-07] MEDS: traZODone HCL 50 MG TAB PO SCH (22:48)
[2021-04-07] MEDS: LORazepam 2MG/ML-1ML VIAL IV PRN (23:11)
[2021-04-08 05:00] VITALS: BP 127/77
[2021-04-08] MEDS: SALINE 0.65 % NASAL SPRAY 45ML BOTTLE EACHNOSTRI SCH ×4 (05:28→22:30)
[2021-04-08] MEDS: PIPERACILLIN-TAZOB 3.375GM 100 ML IV SCH ×3 (05:28→22:30)
[2021-04-08] MEDS: BUDESONIDE (INHALATION) 180 MCG IH IN SCH ×2 (05:45→22:26)
[2021-04-08] MEDS: ALBUTEROL SULF HFA 90MCG INH 200DOSE IN PRN (05:45)
[2021-04-08] MEDS: PROMETHAZINE W/CODEINE 5 ML ORAL SYRUP PO PRN (06:02)
[2021-04-08 06:11] LABS: Hemoglobin 12.5 g/dL (13.5-17.5); Red Cell Distribution Width 13.8 % (11.8-14.3)
[2021-04-08 06:16] LABS: Hematocrit 38.7 % (41.0-53.0); Mean Corpuscular Hemoglobin 33.7 pg (28.0-32.0); Mean Corpuscular Hgb Conc. 32.2 g/dL (32.0-36.0); Mean Corpuscular Volume 104.6 fL (80.0-100.0)
[2021-04-08 06:31] LABS: INR 1.05 (0.9-1.15); White Blood Cell 135.5 10^3/uL (4.4-10.8)
[2021-04-08 06:32] LABS: Basophils % (manual) 0 (0.0-2.0); Blast Cells 0; Eosinophils % (manual) 0 (0-7); Metamyelocytes % 0; Myelocytes % 0; Promyelocytes % 0
[2021-04-08 06:45] LABS: BUN/Creatinine Ratio 31.3; CRP High Sensitivity 3.97 mg/dL (< 0.3); Calcium 8.1 mg/dL (8.5-10.1); Magnesium 3.4 mg/dL (1.6-2.6)
[2021-04-08 06:53] LABS: Band Neutrophils % (manual) 1; Lymphocytes % (manual) 82 (10.0-50.0); Monocytes % (manual) 1 (0-12); Reactive Lymphocytes 9
[2021-04-08 09:00] VITALS: BP 120/73
[2021-04-08] MEDS: POTASSIUM CHL 20 Meq TABLET PO SCH (09:55)
[2021-04-08] MEDS: CHOLECALCIFEROL (VITD3) 2,000 UNIT CAP/TAB PO SCH (09:55)
[2021-04-08] MEDS: ENOXAPARIN SOD 40 MG/0.4 ML SYRINGE SC SCH ×2 (09:56→22:31)
[2021-04-08] MEDS: ASCORBIC ACID 1,000 MG TAB PO SCH (09:57)
[2021-04-08] MEDS: ZINC SULFATE 220mg CAP or TAB PO SCH (09:57)
[2021-04-08] MEDS: OLANZapine 5 MG TAB PO SCH (09:57)
[2021-04-08] MEDS: MULTIPLE VITAMIN TAB PO SCH (09:57)
[2021-04-08] MEDS: DexAMETHasone SOD PHOS 4 MG/1ML SDV INJ IV SCH (09:58)
[2021-04-08] MEDS: FAMOTIDINE (10MG/ML) 2ML VL IV SCH ×2 (09:59→22:30)
[2021-04-08] MEDS: FUROSEMIDE 20 MG/2 ML VIAL IV SCH (09:59)
[2021-04-08 12:57] VITALS: BP 113/72
[2021-04-08 17:00] VITALS: BP 113/67
[2021-04-08 22:00] VITALS: BP 128/80
[2021-04-08] MEDS: traZODone HCL 50 MG TAB PO SCH (22:31)
[2021-04-09] MEDS: ALBUTEROL SULF HFA 90MCG INH 200DOSE IN PRN ×3 (00:03→20:23)
[2021-04-09 05:00] VITALS: BP 132/73
[2021-04-09] MEDS: SALINE 0.65 % NASAL SPRAY 45ML BOTTLE EACHNOSTRI SCH ×4 (05:42→21:39)
[2021-04-09] MEDS: PIPERACILLIN-TAZOB 3.375GM 100 ML IV SCH ×3 (05:42→21:39)
[2021-04-09 06:31] LABS: Mean Corpuscular Hemoglobin 34.7 pg (28.0-32.0); Mean Corpuscular Hgb Conc. 34.1 g/dL (32.0-36.0)
[2021-04-09 06:37] LABS: Hematocrit 36.1 % (41.0-53.0); Hemoglobin 12.3 g/dL (13.5-17.5); Mean Corpuscular Volume 101.8 fL (80.0-100.0); Red Blood Cells 3.54 10^6/uL (4.5-5.90); Red Cell Distribution Width 13.5 % (11.8-14.3)
[2021-04-09] MEDS: BUDESONIDE (INHALATION) 180 MCG IH IN SCH ×2 (07:20→19:17)
[2021-04-09 07:38] LABS: White Blood Cell 149.1 10^3/uL (4.4-10.8)
[2021-04-09 07:40] LABS: Band Neutrophils % (manual) 0; Basophils % (manual) 0 (0.0-2.0); Eosinophils % (manual) 0 (0-7); Metamyelocytes % 0; Monocytes % (manual) 0 (0-12); Myelocytes % 0; Promyelocytes % 0
[2021-04-09 09:00] VITALS: BP 135/73
[2021-04-09] MEDS: DexAMETHasone SOD PHOS 4 MG/1ML SDV INJ IV SCH (09:23)
[2021-04-09] MEDS: FAMOTIDINE (10MG/ML) 2ML VL IV SCH ×2 (09:23→21:39)
[2021-04-09] MEDS: ZINC SULFATE 220mg CAP or TAB PO SCH (09:26)
[2021-04-09] MEDS: FUROSEMIDE 20 MG/2 ML VIAL IV SCH (09:26)
[2021-04-09] MEDS: OLANZapine 5 MG TAB PO SCH (09:26)
[2021-04-09] MEDS: POTASSIUM CHL 20 Meq TABLET PO SCH (09:27)
[2021-04-09] MEDS: CHOLECALCIFEROL (VITD3) 2,000 UNIT CAP/TAB PO SCH (09:27)
[2021-04-09] MEDS: ENOXAPARIN SOD 40 MG/0.4 ML SYRINGE SC SCH (09:27)
[2021-04-09] MEDS: ASCORBIC ACID 1,000 MG TAB PO SCH (09:27)
[2021-04-09] MEDS: MULTIPLE VITAMIN TAB PO SCH (09:27)
[2021-04-09] MEDS ORDERED: LACTULOSE 20Gm/30ML SOLN PO PRN (12:30)
[2021-04-09 13:00] VITALS: BP 110/69
[2021-04-09 13:03] LABS: Blast Cells 1; Lymphocytes % (manual) 79 (10.0-50.0); Reactive Lymphocytes 9
[2021-04-09] MEDS: LORazepam 2MG/ML-1ML VIAL IV PRN (14:13)
[2021-04-09] MEDS: DOCUSATE SOD 100 MG CAP PO SCH (21:39)
[2021-04-09] MEDS: MUPIROCIN 2% OINT 15gm or 22gm EACHNOSTRI SCH (21:39)
[2021-04-09] MEDS: ENOXAPARIN SOD 80 MG/0.8ML SYRINGE SC SCH (21:40)
[2021-04-09] MEDS: traZODone HCL 50 MG TAB PO SCH (21:40)
[2021-04-09 22:00] VITALS: BP 115/77
[2021-04-10 05:00] VITALS: BP 123/76
[2021-04-10] MEDS: SALINE 0.65 % NASAL SPRAY 45ML BOTTLE EACHNOSTRI SCH ×4 (05:58→22:01)
[2021-04-10] MEDS: PIPERACILLIN-TAZOB 3.375GM 100 ML IV SCH ×3 (05:58→22:01)
[2021-04-10 07:49] LABS: Hematocrit 35.8 % (41.0-53.0); Mean Corpuscular Hemoglobin 34.2 pg (28.0-32.0); Mean Corpuscular Hgb Conc. 33.4 g/dL (32.0-36.0); Mean Corpuscular Volume 102.2 fL (80.0-100.0)
[2021-04-10 07:55] LABS: Basophils % (manual) 0 (0.0-2.0); Eosinophils % (manual) 0 (0-7); Metamyelocytes % 0; Myelocytes % 0; Promyelocytes % 0; White Blood Cell 150.5 10^3/uL (4.4-10.8)
[2021-04-10 08:00] LABS: BUN/Creatinine Ratio 25.6; Calcium 8.4 mg/dL (8.5-10.1); Magnesium 2.6 mg/dL (1.6-2.6); Potassium 3.7 mmol/L (3.5-5.1)
[2021-04-10 09:00] VITALS: BP 108/64
[2021-04-10] MEDS: BUDESONIDE (INHALATION) 180 MCG IH IN SCH ×2 (09:27→21:54)
[2021-04-10] MEDS: ALBUTEROL SULF HFA 90MCG INH 200DOSE IN PRN ×2 (09:27→21:55)
[2021-04-10] MEDS: DOCUSATE SOD 100 MG CAP PO SCH ×2 (10:20→22:01)
[2021-04-10] MEDS: MUPIROCIN 2% OINT 15gm or 22gm EACHNOSTRI SCH ×2 (10:20→22:00)
[2021-04-10] MEDS: POTASSIUM CHL 20 Meq TABLET PO SCH (10:20)
[2021-04-10] MEDS: OLANZapine 5 MG TAB PO SCH (10:20)
[2021-04-10] MEDS: MULTIPLE VITAMIN TAB PO SCH (10:21)
[2021-04-10] MEDS: ZINC SULFATE 220mg CAP or TAB PO SCH (10:21)
[2021-04-10] MEDS: CHOLECALCIFEROL (VITD3) 2,000 UNIT CAP/TAB PO SCH (10:21)
[2021-04-10] MEDS: ASCORBIC ACID 1,000 MG TAB PO SCH (10:21)
[2021-04-10] MEDS: FAMOTIDINE (10MG/ML) 2ML VL IV SCH (10:22)
[2021-04-10] MEDS: ENOXAPARIN SOD 80 MG/0.8ML SYRINGE SC SCH ×2 (10:23→22:02)
[2021-04-10] MEDS: DexAMETHasone SOD PHOS 4 MG/1ML SDV INJ IV SCH (10:23)
[2021-04-10] MEDS: FUROSEMIDE 20 MG/2 ML VIAL IV SCH (10:23)
[2021-04-10 12:50] VITALS: BP 114/75
[2021-04-10 15:22] LABS: Band Neutrophils % (manual) 1; Blast Cells 2; Lymphocytes % (manual) 51 (10.0-50.0); Monocytes % (manual) 3 (0-12); Reactive Lymphocytes 30
[2021-04-10 17:00] VITALS: BP 133/76
[2021-04-10 21:17] VITALS: BP 132/81
[2021-04-10] MEDS: traZODone HCL 50 MG TAB PO SCH (22:02)
[2021-04-11] MEDS: THROAT LOZENGES(CEPASTAT) MT PRN (04:33)
[2021-04-11 05:00] VITALS: BP 116/77
[2021-04-11] MEDS: SALINE 0.65 % NASAL SPRAY 45ML BOTTLE EACHNOSTRI SCH ×4 (05:31→20:58)
[2021-04-11] MEDS: PIPERACILLIN-TAZOB 3.375GM 100 ML IV SCH ×3 (05:31→22:47)
[2021-04-11 06:20] LABS: Hematocrit 34.6 % (41.0-53.0); Hemoglobin 11.8 g/dL (13.5-17.5); Mean Corpuscular Hemoglobin 35.1 pg (28.0-32.0); Mean Corpuscular Hgb Conc. 34.2 g/dL (32.0-36.0); Mean Corpuscular Volume 102.6 fL (80.0-100.0); Red Blood Cells 3.37 10^6/uL (4.5-5.90)
[2021-04-11 06:38] LABS: White Blood Cell 161.7 10^3/uL (4.4-10.8)
[2021-04-11 06:40] LABS: Basophils % (manual) 0 (0.0-2.0); Blast Cells 0; Eosinophils % (manual) 0 (0-7); Metamyelocytes % 0; Myelocytes % 0; Promyelocytes % 0
[2021-04-11 06:51] LABS: Calcium 8.6 mg/dL (8.5-10.1); Potassium 3.7 mmol/L (3.5-5.1)
[2021-04-11 08:59] VITALS: BP 115/72
[2021-04-11 09:20] LABS: Band Neutrophils % (manual) 1; Lymphocytes % (manual) 68 (10.0-50.0); Monocytes % (manual) 1 (0-12); Reactive Lymphocytes 23
[2021-04-11] MEDS: ENOXAPARIN SOD 80 MG/0.8ML SYRINGE SC SCH ×2 (09:55→22:47)
[2021-04-11] MEDS: ASCORBIC ACID 1,000 MG TAB PO SCH (09:56)
[2021-04-11] MEDS: DOCUSATE SOD 100 MG CAP PO SCH ×2 (09:56→22:47)
[2021-04-11] MEDS: MULTIPLE VITAMIN TAB PO SCH (09:56)
[2021-04-11] MEDS: FUROSEMIDE 20 MG/2 ML VIAL IV SCH (09:56)
[2021-04-11] MEDS: DexAMETHasone SOD PHOS 4 MG/1ML SDV INJ IV SCH (09:56)
[2021-04-11] MEDS: OLANZapine 5 MG TAB PO SCH (09:56)
[2021-04-11] MEDS: ZINC SULFATE 220mg CAP or TAB PO SCH (09:57)
[2021-04-11] MEDS: POTASSIUM CHL 20 Meq TABLET PO SCH (09:57)
[2021-04-11] MEDS: CHOLECALCIFEROL (VITD3) 2,000 UNIT CAP/TAB PO SCH (09:57)
[2021-04-11] MEDS: FAMOTIDINE 20 MG TAB PO SCH (09:57)
[2021-04-11] MEDS: MUPIROCIN 2% OINT 15gm or 22gm EACHNOSTRI SCH ×2 (12:19→20:58)
[2021-04-11 13:00] VITALS: BP 115/72
[2021-04-11] MEDS: BUDESONIDE (INHALATION) 180 MCG IH IN SCH ×2 (13:19→22:38)
[2021-04-11 16:40] VITALS: BP 139/86
[2021-04-11 22:00] VITALS: BP 121/84
[2021-04-11] MEDS: traZODone HCL 50 MG TAB PO SCH (22:47)
[2021-04-11] MEDS: ALBUTEROL SULF HFA 90MCG INH 200DOSE IN PRN (23:27)
[2021-04-12 05:00] VITALS: BP 115/66
[2021-04-12] MEDS: SALINE 0.65 % NASAL SPRAY 45ML BOTTLE EACHNOSTRI SCH ×4 (05:39→21:44)
[2021-04-12] MEDS: PIPERACILLIN-TAZOB 3.375GM 100 ML IV SCH ×3 (06:10→21:44)
[2021-04-12 06:27] LABS: Hematocrit 33.7 % (41.0-53.0); Hemoglobin 11.5 g/dL (13.5-17.5); Mean Corpuscular Hemoglobin 34.8 pg (28.0-32.0); Mean Corpuscular Hgb Conc. 34.2 g/dL (32.0-36.0); Mean Corpuscular Volume 101.9 fL (80.0-100.0); Red Blood Cells 3.31 10^6/uL (4.5-5.90); Red Cell Distribution Width 14.1 % (11.8-14.3)
[2021-04-12 06:34] LABS: White Blood Cell 162.9 10^3/uL (4.4-10.8)
[2021-04-12 06:36] LABS: Band Neutrophils % (manual) 0; Basophils % (manual) 0 (0.0-2.0); Blast Cells 0; Eosinophils % (manual) 0 (0-7); Metamyelocytes % 0; Myelocytes % 0; Promyelocytes % 0
[2021-04-12 08:25] LABS: Monocytes % (manual) 2 (0-12)
[2021-04-12 08:27] LABS: Lymphocytes % (manual) 70 (10.0-50.0); Reactive Lymphocytes 21
[2021-04-12 08:57] VITALS: BP 130/84
[2021-04-12] MEDS: BUDESONIDE (INHALATION) 180 MCG IH IN SCH ×2 (10:45→18:34)
[2021-04-12] MEDS: ALBUTEROL SULF HFA 90MCG INH 200DOSE IN PRN ×2 (10:45→18:34)
[2021-04-12] MEDS: DexAMETHasone SOD PHOS 4 MG/1ML SDV INJ IV SCH (12:52)
[2021-04-12] MEDS: DOCUSATE SOD 100 MG CAP PO SCH ×2 (12:52→21:44)
[2021-04-12] MEDS: MUPIROCIN 2% OINT 15gm or 22gm EACHNOSTRI SCH ×2 (12:52→21:44)
[2021-04-12] MEDS: ZINC SULFATE 220mg CAP or TAB PO SCH (12:52)
[2021-04-12] MEDS: FAMOTIDINE 20 MG TAB PO SCH (12:53)
[2021-04-12] MEDS: OLANZapine 5 MG TAB PO SCH (12:53)
[2021-04-12] MEDS: MULTIPLE VITAMIN TAB PO SCH (12:53)
[2021-04-12] MEDS: POTASSIUM CHL 20 Meq TABLET PO SCH (12:53)
[2021-04-12] MEDS: ASCORBIC ACID 1,000 MG TAB PO SCH (12:53)
[2021-04-12] MEDS: CHOLECALCIFEROL (VITD3) 2,000 UNIT CAP/TAB PO SCH (12:53)
[2021-04-12] MEDS: ENOXAPARIN SOD 80 MG/0.8ML SYRINGE SC SCH ×2 (12:54→21:44)
[2021-04-12 13:00] VITALS: BP 131/78
[2021-04-12] MEDS ORDERED: LACTULOSE 20Gm/30ML SOLN PO ONE (14:00)
[2021-04-12] MEDS: FUROSEMIDE 20 MG/2 ML VIAL IV SCH (14:24)
[2021-04-12 16:54] VITALS: BP 121/85
[2021-04-12] MEDS: traZODone HCL 50 MG TAB PO SCH (21:44)
[2021-04-12 22:00] VITALS: BP 122/57
[2021-04-13 05:00] VITALS: BP 117/73
[2021-04-13] MEDS: PIPERACILLIN-TAZOB 3.375GM 100 ML IV SCH ×3 (05:38→21:56)
[2021-04-13] MEDS: SALINE 0.65 % NASAL SPRAY 45ML BOTTLE EACHNOSTRI SCH ×4 (05:38→21:56)
[2021-04-13 05:45] LABS: Hematocrit 33.2 % (41.0-53.0); Hemoglobin 11.3 g/dL (13.5-17.5); Mean Corpuscular Hemoglobin 34.9 pg (28.0-32.0); Mean Corpuscular Hgb Conc. 34.1 g/dL (32.0-36.0); Mean Corpuscular Volume 102.4 fL (80.0-100.0); Red Blood Cells 3.24 10^6/uL (4.5-5.90); Red Cell Distribution Width 14.1 % (11.8-14.3)
[2021-04-13] MEDS: BUDESONIDE (INHALATION) 180 MCG IH IN SCH ×2 (05:53→20:51)
[2021-04-13] MEDS: ALBUTEROL SULF HFA 90MCG INH 200DOSE IN PRN ×2 (05:54→20:51)
[2021-04-13 06:00] LABS: Basophils % (manual) 0 (0.0-2.0); Blast Cells 0; Eosinophils % (manual) 0 (0-7); Metamyelocytes % 0; Myelocytes % 0; Promyelocytes % 0
[2021-04-13 06:02] LABS: Calcium 8.6 mg/dL (8.5-10.1); Potassium 4.5 mmol/L (3.5-5.1)
[2021-04-13 06:04] LABS: BUN/Creatinine Ratio 22.2
[2021-04-13 09:00] VITALS: BP 110/76
[2021-04-13] MEDS: MUPIROCIN 2% OINT 15gm or 22gm EACHNOSTRI SCH (10:25)
[2021-04-13] MEDS: ZINC SULFATE 220mg CAP or TAB PO SCH (10:25)
[2021-04-13] MEDS: FUROSEMIDE 20 MG/2 ML VIAL IV SCH (10:25)
[2021-04-13] MEDS: DexAMETHasone SOD PHOS 4 MG/1ML SDV INJ IV SCH (10:25)
[2021-04-13] MEDS: MULTIPLE VITAMIN TAB PO SCH (10:26)
[2021-04-13] MEDS: ASCORBIC ACID 1,000 MG TAB PO SCH (10:26)
[2021-04-13] MEDS: POTASSIUM CHL 20 Meq TABLET PO SCH (10:26)
[2021-04-13] MEDS: CHOLECALCIFEROL (VITD3) 2,000 UNIT CAP/TAB PO SCH (10:26)
[2021-04-13] MEDS: FAMOTIDINE 20 MG TAB PO SCH (10:26)
[2021-04-13] MEDS: DOCUSATE SOD 100 MG CAP PO SCH ×2 (10:26→21:56)
[2021-04-13] MEDS: OLANZapine 5 MG TAB PO SCH (10:26)
[2021-04-13] MEDS: ENOXAPARIN SOD 80 MG/0.8ML SYRINGE SC SCH (10:27)
[2021-04-13 12:28] LABS: Band Neutrophils % (manual) 1; Lymphocytes % (manual) 78 (10.0-50.0); Monocytes % (manual) 1 (0-12); Reactive Lymphocytes 15
[2021-04-13 13:00] VITALS: BP 105/71
[2021-04-13 17:00] VITALS: BP 129/75
[2021-04-13] MEDS: APIXABAN 5 MG TAB PO SCH (21:56)
[2021-04-13] MEDS: traZODone HCL 50 MG TAB PO SCH (21:56)
[2021-04-13 22:00] VITALS: BP 138/86
[2021-04-14 05:00] VITALS: BP 116/69
[2021-04-14] MEDS: SALINE 0.65 % NASAL SPRAY 45ML BOTTLE EACHNOSTRI SCH ×3 (05:42→18:00)
[2021-04-14] MEDS: PIPERACILLIN-TAZOB 3.375GM 100 ML IV SCH ×2 (05:42→14:42)
[2021-04-14 08:37] VITALS: BP 126/80
[2021-04-14] MEDS: APIXABAN 5 MG TAB PO SCH (09:10)
[2021-04-14] MEDS: DOCUSATE SOD 100 MG CAP PO SCH (09:10)
[2021-04-14] MEDS: ZINC SULFATE 220mg CAP or TAB PO SCH (09:10)
[2021-04-14] MEDS: DexAMETHasone SOD PHOS 4 MG/1ML SDV INJ IV SCH (09:10)
[2021-04-14] MEDS: FUROSEMIDE 20 MG/2 ML VIAL IV SCH (09:10)
[2021-04-14] MEDS: POTASSIUM CHL 20 Meq TABLET PO SCH (09:11)
[2021-04-14] MEDS: MULTIPLE VITAMIN TAB PO SCH (09:11)
[2021-04-14] MEDS: FAMOTIDINE 20 MG TAB PO SCH (09:11)
[2021-04-14] MEDS: ASCORBIC ACID 1,000 MG TAB PO SCH (09:11)
[2021-04-14] MEDS: OLANZapine 5 MG TAB PO SCH (09:12)
[2021-04-14] MEDS: CHOLECALCIFEROL (VITD3) 2,000 UNIT CAP/TAB PO SCH (09:12)
[2021-04-14] MEDS: THROAT LOZENGES(CEPASTAT) MT PRN (09:15)
[2021-04-14] MEDS: BUDESONIDE (INHALATION) 180 MCG IH IN SCH ×2 (10:00→20:35)
[2021-04-14] MEDS: ALBUTEROL SULF HFA 90MCG INH 200DOSE IN PRN ×2 (10:45→20:35)
[2021-04-14 12:43] VITALS: BP 113/72
[2021-04-14 16:40] VITALS: BP 114/79
[2021-04-14 20:52] VITALS: BP 114/79
[2021-04-14 22:00] VITALS: BP 124/72
== END 2021-04-14 22:05 | disposition home or self-care (01) | DRG 871 ==
LOC: ER 15:43 → OVERFLOW 22:43 → EAST 03-31 08:49 → TELE-EAST 04-01 04:49
PROVIDERS: ADMIT Nurse Practitioner Family; ATTEND Internal Medicine
PROC: XW033E5 Introduction of Remdesivir Anti-infective into Peripheral Vein, Percutaneous Approach, New Technology Group 5 (ICD-10-PCS; principal; 2021-03-31)
DX: A41.89 Other specified sepsis (principal); U07.1 COVID-19; J12.82 Pneumonia due to coronavirus disease 2019; J96.01 Acute respiratory failure with hypoxia; E87.1 Hypo-osmolality and hyponatremia; C91.10 Chronic lymphocytic leukemia of B-cell type not having achieved remission; J44.0 Chronic obstructive pulmonary disease with (acute) lower respiratory infection; I82.402 Acute embolism and thrombosis of unspecified deep veins of left lower extremity; D89.834 Cytokine release syndrome, grade 4; I10 Essential (primary) hypertension; D69.6 Thrombocytopenia, unspecified; F32.A Depression, unspecified; F41.9 Anxiety disorder, unspecified; K59.00 Constipation, unspecified; Z79.01 Long term (current) use of anticoagulants; Z79.899 Other long term (current) drug therapy
CPT/HCPCS: 36415; 36600; 71045; 80048; 80053; 82306; 82607; 82668; 82728; 82746; 82784; 82805; 83036; 83605; 83615; 83735; 84484; 85007; 85027; 85379; 85610; 85652; 86141; 87040; 87081; 87426; 93005; 93970; 94640; 96365; 96368; 96375; 97110; 97116; 97163; 97530; G0378; J0696; J1100; J2405; J2543; J3490

== ENCOUNTER 2024-04-03 17:24 | Emergency (ER) | payer MEDICARE, OTHER ==
[~2024-04-03] VITALS: Ht 172.7 cm; Wt 82.0 kg
[~2024-04-03 17:24] MED LIST changes: +LATA0.008 EACHEYE
[2024-04-03 18:23] VITALS: BP 115/68; PULSE 68; RESP 22; TEMP 98.9; O2SAT 95
[2024-04-03] MEDS ORDERED: MORPHINE SULFATE INJ 2 MG/ml SYRG IM ONE (18:30)
--- NOTE | 2024-04-03 18:51 | DVH ---
CLINICAL INDICATION: s/p fall pain TECHNIQUE: 3 radiographic views of the left hip were obtained. Comparison: None FINDINGS/IMPRESSION: There is no evidence of acute fracture or dislocation. Mild degenerative changes of the hip The alignment is anatomical. 8 mm density within the soft tissues adjacent to the left greater trochanter which may represent nons pecific soft tissue calcification. Phleboliths are noted within the pelvis. Moderate to large amount of fecal material within the visual ized colon.
[2024-04-03] MEDS: HYDROcodone-ACET 5/325MG TAB PO ONE (19:03)
--- NOTE | 2024-04-03 20:00 | ED.PDOC ---
Back pain HPI HPI Comments This is a 73-year-old male presents to the ED chief complaint left hip pain. Patient states he was spitting his dog when the dog jumped on him knocked him over and fell on his left side on the cement. Complaining of left-sided hip pain 10/10 on pain scale sharp shooting in nature he states worse with ambulating. Has not tried any [id number] relief measures. Denies numbness, weakness, headache, chest pain, difficulty breathing, shortness of breath, abdominal pain, neck or back pain. Chief Complaint: Fall Injury Time Seen by MD: 18:01 Primary Care Provider: RAY Reviewed Notes: Nurses Notes, Medications, Allergies Allergies: Coded Allergies: NO KNOWN ALLERGIES (Unverified , 05/31/10) Home Meds Reported Medications Latanoprost (LATANOPROST) 0.005 % Jacqueline, 1 DROP EACHEYE QPM, #7.5 ML 3 Refills 04/01/21 [place]-3 Fatty Acids (FISH OIL) Unknown Strength Cap, PO DAILY, CAP 01/27/20 Multiple Vitamins W/ Minerals (Multivitamin Adults 50+) 1 Tab Tab, 1 TAB PO DAILY, TAB 01/27/20 Olanzapine (OLANZAPINE) 2.5 Mg Tab, 10 MG PO DAILY, TAB 01/27/20 Clonidine HCl (Clonidine Hydrochloride) 0.1 Mg Tab, 0.3 MG PO DAILY, TAB 01/27/20 Trazodone HCl (Trazodone Hydrochloride) 50 Mg Tab, 100 MG PO HS, TAB 01/27/20 Information Source: Patient Mode of Arrival: Ambulatory Past Medical History PAST MEDICAL HISTORY: Anxiety, Cancer, Depression, HTN, Denies Surgical History: Denies all surgeries Family History Family History: No family hx of Cancer, Unobtainable Social History Smoker: Non-Smoker Alcohol: Denies ETOH Use Drugs: Denies Drug Use Lives In: Home Constitutional: denies: chills, diaphoresis, fatigue, fever, malaise, sweats, weakness, others EENTM: denies: blurred vision, double vision, ear bleeding, ear discharge, ear drainage, ear pain, ear ringing, eye pain, eye redness, hearing loss, mouth pain, mouth swelling, nasal discharge, nose bleeding, nose congestion, nose pain, photophobia, tearing, throat pain, throat swelling, voice changes, others Respiratory: denies: cough, hemoptysis, orthopnea, SOB at rest, shortness of breath, SOB with excertion, stridor, wheezing, others Cardiovascular: denies: chest pain, dizzy spells, diaphoresis, Dyspnea on exertion, edema, irregular heart beat, left arm pain, lightheadedness, palpitations, PND, syncope, others Gastrointestinal: denies: abdomen distended, abdominal pain, blood streaked bowels, constipated, diarrhea, dysphagia, difficulty swallowing, hematemesis, melena, nausea, poor appetite, poor fluid intake, rectal bleeding, rectal pain, vomiting, others Genitourinary: denies: burning, dysuria, flank pain, frequency, hematuria, incontinence, penile discharge, penile sore, pain, testicle pain, testicle swelling, urgency, others Neurological: denies: dizziness, fainting, headache, left sided numbness, left sided weakness, numbness, paresthesia, pre-existing deficit, right sided numbness, right sided weakness, seizure, speech problems, tingling, tremors, weakness, others Musculoskeletal: reports: others (Left lateral hip pain); denies: back pain, gout, joint pain, joint swelling, muscle pain, muscle stiffness, neck pain Integumetry: denies: bruises, change in color, change in hair/nails, dryness, laceration, lesions, lumps, rash, wounds, others Allergic/Immunocompromised: denies: Difficulty Healing, Frequent Infections, Hives, Itching, others Hematologic/Lymphatic: denies: anemia, blood clots, easy bleeding, easy bruising, swollen glands, others Endocrine: denies: excessive hunger, excessive sweating, excessive thirst, excessive urination, flushing, intolerance to cold, intolerance to heat, unexplained weight gain, unexplained weight loss, others Psychiatric: denies: anxiety, bipolar disorder, depression, hopeless, panic disorder, schizophrenia, sleepless, suicidal, others Physical Exam General Appearance: No Apparent Distress, Normal HEENT: Pharynx Normal Neck: Full Range of Motion, Non-Tender Respiratory: Chest Non-Tender, Lungs Clear, No Respiratory Distress, Normal Breath Sounds Cardiovascular: No Edema, No JVD, No Murmur, No Gallop, Normal Peripheral Pulses, Regular Rate/Rhythm Breast Exam: Deferred Gastrointestinal: No Organomegaly, Non Tender, No Pulsatile Mass, Normal Bowel Sounds, Soft Genitalia: Deferred Pelvic: Deferred Rectal: Deferred Extremities: Normal capillary refill, Normal inspection, Normal range of motion, Non-tender, No pedal edema Musculoskeletal : Location: Left Extremity Location: Hip (Moderate tenderness on palpation left lateral hip trochanteric bursa aspect. Strength sensory and motion intact positive pedal pulse. No noted external trauma signs of ecchymosis, abrasions, lesions or lacerations) Apperance: Normal Neurologic: Alert, grey percher II-XII nml as Tested, No Motor Deficits, Normal Affect, Normal Mood, No Sensory Deficits Cerebellar Function: Normal Reflexes: Normal Skin: Dry, Normal Color, Warm Lymphatic: No Adenopathy Was a procedure done? Was a procedure done?: No Back Pain Differential Dx Differential Diagnosis: Fracture, Musculoskeletal Pain X-Ray, Labs, Meds, VS Vital Signs Date Time Temp Pulse Resp B/P (MAP) Pulse Ox O2 Delivery O2 Flow Rate FiO2 04/03/24 18:23 68 22 95 Room Air 04/03/24 18:23 98.9 68 22 115/68 (84) 95 98.9 04/03/24 17:26 98.9 68 22 115/64 (81) 95 Current Medications Medications (Trade) Dose Ordered Sig/Sasha Route Start Time Stop Time Status Last Admin Acetaminophen/ Hydrocodone Bitart ([place] 5/325MG Tab) 2 tab ONCE ONCE PO 04/03/24 18:45 04/03/24 18:46 DC 04/03/24 19:03 Ketorolac Tromethamine (Toradol Injection) 60 mg ONCE ONCE IM 04/03/24 20:15 04/03/24 20:16 DC 04/03/24 20:28 X-Ray, Labs, Meds, VS Comment Left hip x-ray shows no acute findings or osseous lesions. Patient given [place] 10 mg p.o., refused morphine 1 mg IM. States pain is a 6/10 stating he has still in pain with ambulating with difficulty walking. Do not 60 mg IM given patient tolerated well notes pain 2/10 able to ambulate with mild pain patient requesting discharge at this time rest increase p.o. fluids advised on rice. Advised to follow up with his PCP in 2-3 days consider further imaging such as MRI if symptoms persist ED return precautions given patient indicated understanding agrees with discharge plan of care Time of Reevaluation: 20:52 Reevaluation 1ST: Improved Patient Education/Counseling: Diagnosis, Treatment, Prognosis, Need For Follow Up Family Education/Counseling: No Family Present Departure 1 Departure Time of Disposition: 20:52 Impression: Primary Impression: Contusion of left hip, initial encounter Disposition: HOME / SELF CARE / HOMELESS Condition: Stable Discharged With: Significant Other Critical Care Note Critical Care Time?: No Stability Stability form required: DRAKE Rene Apr 03, 2024 20:00
[2024-04-03] MEDS: KETOROLAC TROMETH 60MG/2ML VIAL IM ONE (20:28)
[2024-04-03] MEDS ORDERED: METH4PAK PO (21:49)
== END 2024-04-03 21:49 | disposition home or self-care (01) ==
LOC: ER 17:24
DX: S70.02XA Contusion of left hip, initial encounter (principal); F41.9 Anxiety disorder, unspecified; I10 Essential (primary) hypertension; F32.A Depression, unspecified; Z85.9 Personal history of malignant neoplasm, unspecified; W18.30XA Fall on same level, unspecified, initial encounter; Y93.89 Activity, other specified; Y99.8 Other external cause status; Y92.89 Other specified places as the place of occurrence of the external cause
CPT/HCPCS: 73502; 96372; 99283; J1885

== ENCOUNTER 2024-08-19 16:24 | Inpatient (IN) | payer MEDICARE ==
[~2024-08-19] VITALS: Ht 172.7 cm; Wt 91.1 kg
[~2024-08-19 16:24] MED LIST changes: +METH4PAK PO
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
[2024-08-19 17:00] VITALS: PULSE 95; RESP 20; O2SAT 94
[2024-08-19] MEDS: ACETAMINOPHEN 325 MG TAB PO ONE ×2 (17:00→22:46)
[2024-08-19 17:09] LABS: Hematocrit 41.3 % (41.0-53.0); Mean Corpuscular Hemoglobin 34.6 pg (28.0-32.0); Mean Corpuscular Hgb Conc. 33.9 g/dL (32.0-36.0); Mean Corpuscular Volume 101.9 fL (80.0-100.0); Platelet Count (auto) 137 10^3/uL (140-450); Red Blood Cells 4.06 10^6/uL (4.5-5.90); Red Cell Distribution Width 14.1 % (11.8-14.3); White Blood Cell 25.2 10^3/uL (4.4-10.8)
[2024-08-19 17:11] LABS: Band Neutrophils % (manual) 0; Basophils % (manual) 0 (0.0-2.0); Blast Cells 0; Eosinophils % (manual) 0 (0-7); Metamyelocytes % 0; Myelocytes % 0; Promyelocytes % 0
[2024-08-19] MEDS: SODIUM CHLORIDE 0.9% 1,000 ML IV ONE ×2 (17:11→20:45)
[2024-08-19 17:16] LABS: Chloride 107 mmol/L (98-107); Potassium 4.6 mmol/L (3.5-5.1)
[2024-08-19 17:17] LABS: Anion Gap 8 (5-15); Carbon Dioxide 21 mmol/L (20-31)
[2024-08-19 17:18] LABS: Calcium 9.3 mg/dL (8.7-10.4)
[2024-08-19 17:23] LABS: BUN/Creatinine Ratio 9.1 (10.0-20.0); Blood Urea Nitrogen 11 mg/dL (9-23)
[2024-08-19 18:08] LABS: Blood Alcohol < 3.0 mg/dL (<10); Glucose 122 mg/dL (74-106); Sodium 136 mmol/L (136-145)
--- NOTE | 2024-08-19 19:00 | ECG ---
[facility] Test Date: 2024-08-19 Test Time: 16:44:11 Pat Name: ADALI BELL Department: ED Room: [address] [place] [address] Gender: M Valver: GENEVA : 1950 Requested By: FORTINO SIERRA Order Number: [id number] Reading MD: Giancarlo Hearn Measurements Intervals [place] Rate: 95 P: 38 FL: 138 QRS: 66 QRSD: 103 T: 29 QT: 362 QTc: 455 Interpretive Statements Sinus rhythm Electronically Signed On 08-23-2024 22:06:45 PDT by Giancarlo Hearn Please click the below link to view image of tracing.
[2024-08-19 19:06] LABS: Monocytes % (manual) 1 (0-12)
[2024-08-19 19:07] LABS: Macrocytosis Slight; Platelet Estimate Decreased
[2024-08-19 19:08] LABS: Lymphocytes % (manual) 72 (10.0-50.0); Reactive Lymphocytes 5
[2024-08-19 19:19] LABS: Urine Bacteria None Seen /hpf (None Seen)
[2024-08-19 19:34] LABS: Urine Blood Negative /uL (Negative); Urine Clarity Clear (Clear); Urine Color Yellow (Yellow); Urine Protein, UAD Negative (Negative); Urine Specific Gravity 1.019 (1.001-1.035); Urine Squamous Epithelial Cell FEW /hpf (<5); Urine Urobilinogen Normal (Negative); Urine WBC < 1 /HPF (0-3)
[2024-08-19] MEDS: cefTRIAXone 1GM/50ML D5W 50 ML IV SCH (20:45)
[2024-08-19] MEDS ORDERED: VANCOMYCIN PER PHARMACY 0 MG IV SCH (20:45)
[2024-08-19] MEDS: VANCOMYCIN 1GM/200ML PM 250 ML IV SCH (21:00)
[2024-08-19] MEDS ORDERED: KETOROLAC TROMETH 30 MG/ML 1ML VIAL IV PRN (21:15)
--- NOTE | 2024-08-19 21:31 | DVH ---
CHEST RADIOGRAPH Indication: cp Technique: Single frontal view of the chest was obtained Comparison: CHEST PORTABLE on DOS: 04/13/21, CHEST PORTABLE on DOS: 04/05/21, CHEST PORTABLE on DOS: 01/13 FINDINGS: Lines and Tubes: None Lungs: No focal consolidation. diffuse interstitial prominence. Pleura: No effusion. No pneumothorax. Cardiomediastinal contours: Unremarkable Bones: No acute osseous abnormality. IMPRESSION: Pulmonary vascular congestion. Underlying infectious process can not be excluded.
[2024-08-19 21:35] LABS: Albumin 4.2 g/dL (3.2-4.8); Total Protein 6.2 g/dL (5.7-8.2)
[2024-08-19 21:36] LABS: Bilirubin, Direct 0.3 mg/dL (<0.3); Bilirubin, Total 0.7 mg/dL (0.2-1.0)
--- NOTE | 2024-08-19 21:39 | DVH ---
EXAM: CT HEAD WITHOUT CONTRAST INDICATION: aloc TECHNIQUE: CT of the head without intravenous contrast. Radiation Dose Information: CT Dose: CTDI volume is 55.4 mGy. Dose-length product is 1086.71 mGy*cm The dose indicators for CT are the volume Computed Tomography (CT) Dose Index (CTDIvol) and the Dose Length Product (DLP), and are measured in units of mGy and mGy-cm, respectively. These indicators are not patient dose, but values generated from the CT scanner acquisition factors. The report includes radiation exposure data for exposures received during this examination. COMPARISON: None FINDINGS: There is no evidence of acute intracranial hemorrhage, extra-axial collection, mass effect, midline s hift, herniation or hydrocephalus. The ventricles, sulci and cisterns are age appropriate. The rodas-white differentiation is intact. Patchy periventricular and subcortical white matter hypoattenuation is nonspecific but may be related to small vessel ischemic disease. Mucosal thickening maxillary and ethmoid sinuses bilaterally and right sphenoid bilaterally. The mas toid air cells are clear. The surrounding soft tissues and osseous structures are unremarkable.. IMPRESSION: 1. No acute intracranial hemorrhage 2. Bilateral maxillary ethmoid sphenoid sinusitis. 3. No acute territorial ischemia.
[2024-08-19 21:40] LABS: Folate (Folic Acid) 21.6 ng/mL (>5.38)
--- NOTE | 2024-08-19 21:40 | DVHHP2 ---
History of Present Illness Reason for Visit: AMS History of Present Illness A 73y old male with a known history of chronic lymphocytic leukemia, COPD, DVT who was brought in by his daughter this afternoon due to new-onset confusion and abnormal behavior. According to the daughter, the patient was acting weird and confused, which was a sudden change from baseline. He was drinking cleaning products from the kitchen. There were no reported seizures, no urinary or fecal incontinence, and no loss of consciousness. The daughter denies recent trauma or falls. In addition, the patient has had a productive cough for the past 2 days. No fever was reported at home. But at admission, was foun T more than 100. There has been no recent travel, known sick contacts, or antibiotic use. Daughter is reliable historian and reports good adherence to home medications Past Medical History: Chronic lymphocytic leukemia, COPD, Hypertension, CHF with preserved EF? , Depression/anxiety, History of thrombocytopenia, History of DVT (on anticoagulation), Glaucoma Social History Smoker: Non-Smoker Alcohol: Denies ETOH Use Drugs: Denies Drug Use Lives In: Home Review of Systems Constitutional: Yes: Fever, Chills; No: Sweats, Weakness, Malaise, Other Eyes: No: Pain, Vision change, Conjunctivae inflammation, Eyelid inflammation, Other, Redness ENT: No: Ear pain, Ear discharge, Nose pain, Nose discharge, Nose congestion, Mouth pain, Mouth swelling, Throat pain, Throat swelling, Other Respiratory: Cough; No: Dry, Shortness of breath, SOB with excertion, Wheezing, Hemoptysis, Pleuritic Pain, Sputum, Wheezing, Other Cardiovascular: No: Chest Pain, Palpitations, Orthopnea, Paroxysmal Noc. Dyspnea, Edema, Lt Headedness, Other Gastrointestinal: No: Nausea, Vomiting, Abdominal Pain, Diarrhea, Constipation, Melena, Hematochezia, Other Genitourinary: No Dysuria, No Frequency, No Incontinence, No Hematuria, No Retention, No Other Musculoskeletal: No: other, neck pain, shoulder pain, arm pain, back pain, hand pain, leg pain, foot pain Skin: No: Rash, Lesions, Jaundice, Bruising, Other Neurological: Confusion; No: Weakness, Numbness, Incoordination, Change in speech, Seizures, Other Allergies: Coded Allergies: NO KNOWN ALLERGIES (Unverified , 05/31/10) Medications Current Medications Medications Dose Ordered Sig/Sasha Route Start Time Stop Time Status Last Admin Dose Admin Vancomycin HCl 0 ml @ 0 mls/hr UD IV 08/19/24 20:45 Ceftriaxone Sodium 50 ml @ 100 mls/hr DAILY@09 IV 08/19/24 20:45 Azithromycin 250 ml @ 125 mls/hr DAILY@2200 IV 08/19/24 22:00 Enoxaparin Sodium 80 mg Q12HR SC 08/19/24 22:00 Vancomycin HCl 250 ml @ 250 mls/hr Q1H IV 08/19/24 21:00 08/19/24 22:59 Ketorolac Tromethamine 15 mg Q6HPRN PRN IV 08/19/24 21:15 08/24/24 21:14 UNV Exam Vital Signs Vital Signs Date Time Temp Pulse Resp B/P (MAP) Pulse Ox O2 Delivery O2 Flow Rate FiO2 08/19/24 19:30 99.0 75 20 116/65 (82) 94 99.0 08/19/24 17:00 Room Air* 0 21 General Appearance: Alert, mild distress, Other (drowsy ) HEENT: Atraumatic, Other (dry mucous) Respiratory: Clear to auscultation Cardiovascular: Regular rate Abdominal: Normal bowel sounds, Soft Extremities: No clubbing, No cyanosis Skin: No rashes, No breakdown Neuro: Normal gait, Normal speech Psych/Mental Status: Mental status NL Labs/Xrays Labs Test 08/19/24 20:53 08/19/24 16:52 08/19/24 16:38 Range/Units White Blood Count 25.2 H 4.4-10.8 10^3/uL Red Blood Count 4.06 L 4.5-5.90 10^6/uL Hemoglobin 14.0 13.5-17.5 g/dL Hematocrit 41.3 41.0-53.0 % Mean Corpuscular Volume 101.9 H 80.0-100.0 fL Mean Corpuscular Hemoglobin 34.6 H 28.0-32.0 pg Mean Corpuscular Hemoglobin Concent 33.9 32.0-36.0 g/dL Red Cell Distribution Width 14.1 11.8-14.3 % Platelet Count 137 L 140-450 10^3/uL Mean Platelet Volume 7.8 6.9-10.8 fL Neutrophils (%) (Auto) 37.0-80.0 % Lymphocytes (%) (Auto) 10.0-50.0 % Monocytes (%) (Auto) 0.0-12.0 % Basophils (%) (Auto) 0.0-2.0 % Neutrophils # (Auto) 1.6-8.6 10 ^3/uL Lymphocytes # (Auto) 0.4-5.4 10 ^3/uL Monocytes # (Auto) 0-1.3 10 ^3/uL Differential Total Cells Counted 100.0 100 Neutrophils % (Manual) 22 L 37.0-80.0 Band Neutrophils % (Manual) 0 Lymphocytes % (Manual) 72 H 10.0-50.0 Monocytes % (Manual) 1 0-12 Eosinophils % (Manual) 0 0-7 Basophils % (Manual) 0 0.0-2.0 Metamyelocytes % (manual) 0 Myelocytes % (Manual) 0 Promyelocytes % (Manual) 0 Blast Cells % (Manual) 0 Reactive Lymphocytes 5 Platelet Estimate Decreased Macrocytosis Slight Sodium Level 136 136-145 mmol/L Potassium Level 4.6 3.5-5.1 mmol/L Chloride Level 107 98-107 mmol/L Carbon Dioxide Level 21 20-31 mmol/L Anion Gap 8 5-15 Blood Urea Nitrogen 11 9-23 mg/dL Creatinine 1.21 0.700-1.30 mg/dL Glomerular Filtration Rate Calc 64 >90 mL/min BUN/Creatinine Ratio 9.1 L 10.0-20.0 Serum Glucose 122 H 74-106 mg/dL Lactic Acid Level 1.7 0.4-2.0 mmol/L Calcium Level 9.3 8.7-10.4 mg/dL Plasma/Serum Blood Alcohol < 3.0 <10 mg/dL Urine Color Yellow Yellow Urine Clarity Clear Clear Urine pH 7.0 5.0-9.0 Urine Specific [place] 1.019 1.001-1.035 Urine Protein Negative Negative Urine Ketones Negative Negative Urine Blood Negative Negative /uL Urine Nitrite Negative Negative Urine Bilirubin Negative Negative Urine Urobilinogen Normal Negative mg/dL Urine Leukocyte Esterase Negative Negative /uL Urine RBC 1 0 - 3 /hpf Urine Microscopic WBC < 1 0-3 /HPF Urine Squamous Epithelial Cells Few <5 /hpf Urine Bacteria None seen None Seen /hpf Urine Glucose Normal Normal mg/dL Assessment/Plan Assessment/Plan 1. Sepsis due to possible pneumonia gram+/gram- 2. Acute metabolic encephalopathy due to sepsis 3. Pneumonia gram+/gram - 4. Chronic lymphocytic leukemia. 5. Chronic obstructive pulmonary disease, non in exacrebation 6. Hypertensive heart disease with diastolic dysfunction 7. H/o Left leg deep venous thrombosis. 8. Thrombocytopenia. 9. Depression/anxiety 10. Secondary hypercoagulable state Admit NPO Aspiration precautions Telemetry NS 1 LT Azithromycin Ceftriaxone Vancomycin Enoxaparin 80 mg BID sc Pending head ct scan, xray, viral panel and sputum culture Pending blood culture Pending CT scan of abdomen/pelvis Breathing treatments Case discussed with Dr Gallego Full code Plan discussed with: Patient, Other (rn) My Orders Orders - DEJAN FELDER Procedure Category Date Status Time Admit ADMIT 08/19/24 Transmitted 20:36 Code Status CODE 08/19/24 Transmitted 20:36 Vital Signs ELLE 08/19/24 In Process 20:36 Review Orders With ELLE 08/19/24 In Process Adm. 20:36 Notify Of Changes ELLE 08/19/24 In Process From Base 20:36 Advance Directive ELLE 08/19/24 In Process 20:36 Patient Condition ORDERS 08/19/24 Transmitted 20:36 Allergies ELLE 08/19/24 In Process 20:36 Sodium Chloride 0.9% PHA 08/19/24 In Process 20:45 Vancomycin Per PHA 08/19/24 In Process Pharmacy 20:45 Ceftriaxone 1gm/50ml PHA 08/19/24 In Process D5w (Rocephin) 20:45 Electrocardigram EKG 08/19/24 Logged 20:36 Urine Bacterial PANKAJ 08/19/24 In Process Culture 20:36 Respiratory Culture PANKAJ 08/19/24 Logged W/ Gs 20:36 Mrsa Screen PANKAJ 08/19/24 Logged 20:36 Ammonia LAB 08/19/24 In Process 20:36 Folate (Folic Acid) LAB 08/19/24 In Process 20:36 Vitamin B12 LAB 08/19/24 In Process 20:36 Vitamin D, 25-Hydroxy LAB 08/19/24 In Process 20:36 Covid19 Antigen Irene LAB 08/19/24 Logged Rapid Influenza A&B LAB 08/19/24 Logged 20:44 Hepatic Panel LAB 08/19/24 In Process 20:46 Thyroid Stimulating LAB 08/19/24 In Process Hormone 20:47 Drug Screen LAB 08/19/24 Logged 20:48 Azithromycin 500mg/ PHA 08/19/24 In Process 250ml (Zithromax 50 22:00 Enoxaparin Sodium PHA 08/19/24 In Process (Lovenox) 22:00 Vancomycin 1gm/200ml PHA 08/19/24 In Process Pm 21:00 Basic Metabolic Panel LAB 08/20/24 Verified 04:00 Ketorolac Injection PHA 08/19/24 Logged (Toradol Injection) 21:15 Strict Aspiration ELLE 08/19/24 In Process Precautions 21:14 Date of Service: August 19, 2024 Billing Provider: ELVER GALLEGO MD Common Visit Codes: [id number] INP/OBS CARE (HIGH) Secondary Visit Codes: [id number] CARE PLAN 30 MINUTES DEJAN FELDER RESIDENT August 19, 2024 21:40
[2024-08-19 21:58] LABS: Phencyclidine Screen, Urine Neg (NEGATIVE)
[2024-08-19 22:00] LABS: Amphetamine Screen, Urine Neg (NEGATIVE); Barbiturate Scree,Urine Neg (NEGATIVE); Benzodiazephine Screen, Urine Neg (NEGATIVE); Cannabinoid Screen, Urine Neg (NEGATIVE); Cocaine Screen, Urine Neg (NEGATIVE); Opiate Scree,Urine Neg (NEGATIVE)
[2024-08-19] MEDS: AZITHROMYCIN 500MG/ 250ML 250 ML IV SCH (22:00)
[2024-08-19] MEDS ORDERED: IPRATROPIUM BROM 0.5 MG/2.5ML INH SOL NEB PRN (22:15)
[2024-08-19] MEDS ORDERED: ALBUTEROL SULF 2.5 MG/0.5ML(0.5%) NEB SOLN NEB PRN (22:15)
[2024-08-19 22:16] VITALS: BP 116/65; PULSE 82; RESP 20; TEMP 99; O2SAT 94
[2024-08-19] MEDS ORDERED: ACETAMINOPHEN 325 MG TAB PO PRN (22:45)
[2024-08-19] MEDS: ENOXAPARIN SOD 80 MG/0.8ML SYRINGE SC SCH (22:46)
--- NOTE | 2024-08-19 23:05 | DVH ---
Exam: CT CT AB PEL WO CON-NO ORAL OR IV History: sepsis CLL Comparison Study: None TECHNIQUE: Multidetector CT of the abdomen was performed from lung bases to pubic symphysis. Imaging was performed without IV contrast. Axial, coronal and sagittal multiplanar reformats were obtained fr om the axial data set by the technologist. Radiation Dose Information: CT Dose: CTDI volume is 1499 mGy. Dose-length product is 924.96 mGy*cm FINDINGS: Evaluation of solid organs is limited due to lack of intravenous contrast use. Findings: Lung Bases: No acute or significant lung base finding. Normal heart size. No pleural or pericardial effusion. Liver: The liver is normal in size. No focal lesions. Gallbladder and Biliary Tree: Unremarkable Spleen: Unremarkable Pancreas: The pancreas is grossly normal in appearance. Adrenal Glands: Unremarkable Kidneys: Kidneys are grossly normal without calculi or hydronephrosis. Bladder: Grossly unremarkable for degree of distention. Bowel: The stomach is grossly normal in appearance. Small bowel and colon are normal in caliber and d istribution. The appendix is not visualized; however, no secondary findings of acute appendicitis id entified. Ascites: Absent Lymphadenopathy: No mesenteric, retroperitoneal or periportal lymphadenopathy. Abdominal Wall and Mesentery: Unremarkable. Vasculature: The visualized abdominal aorta is normal in size and caliber. Evaluation of abdominal a nd pelvic vessels is limited due to lack of intravenous contrast. Pelvic Organs: Unremarkable Musculoskeletal: No aggressive focal bony lesions, acute fractures or dislocation. Soft tissues: Anterior to the abdominal aorta and inferior vena cava in the mid abdomen is a 6 x 3.1 x 3.6 cm soft tissue mass. (Noted in series 2, images 46-57; series 601 images 54- 58.) is intra-abd ominal masses noted level of L3. This may represent a lymph node mass or confluence of small-bowel me senteric neoplasm. Repeat study with oral and IV contrast may be helpful. IMPRESSION: 1. Lobulated intraperitoneal mass at the level of L3 measuring 6 cm in length by 3 x 3 cm. This may r epresent a confluence of mesenteric lymph nodes or small-bowel mass. (Noted in series 2, images 46-57 ; series 601 images 54- 58.) 2. No findings to suggest bowel obstruction. 3. 2.4 cm fat containing right inguinal hernia. 4. Radiation optimization: All CT scans at this facility use at least one of these dose optimization techniques: automated exposure control mA and/or kV adjustment per patient size (includes targeted e xams where dose is matched to clinical indication) or iterative reconstruction.
[2024-08-20] VITALS (9 sets, daily range): BP systolic 128–132; BP diastolic 80–81; PULSE 57–82; RESP 16–18; TEMP 98.3–99.7; O2SAT 94–97
[2024-08-20 00:18] LABS: COVID19 ANTIGEN SOFIA FIA NEGATIVE (NEGATIVE); Rapid Influenza A Negative (Negative); Rapid Influenza B Negative (Negative)
[2024-08-20 06:34] LABS: Hematocrit 38.6 % (41.0-53.0); Hemoglobin 13.3 g/dL (13.5-17.5); Mean Corpuscular Hemoglobin 34.7 pg (28.0-32.0); Mean Corpuscular Hgb Conc. 34.3 g/dL (32.0-36.0); Platelet Count (auto) 125 10^3/uL (140-450); Red Blood Cells 3.82 10^6/uL (4.5-5.90); Red Cell Distribution Width 14.2 % (11.8-14.3); White Blood Cell 29.3 10^3/uL (4.4-10.8)
[2024-08-20 06:36] LABS: Alanine Aminotransferase 12 U/L (7-40); Alkaline Phosphatase 113 U/L (46-116); Anion Gap 11 (5-15); Aspartate Aminotransferase 15 U/L (13-40); BUN/Creatinine Ratio 9.9 (10.0-20.0); Bilirubin, Total 0.6 mg/dL (0.2-1.0); Blood Urea Nitrogen 10 mg/dL (9-23); Carbon Dioxide 22 mmol/L (20-31); Glucose 105 mg/dL (74-106); Potassium 3.9 mmol/L (3.5-5.1); Sodium 142 mmol/L (136-145); Total Protein 6.3 g/dL (5.7-8.2)
[2024-08-20 06:38] LABS: Free T3 2.28 pg/mL (2.3-4.2); Free T4 (Free Thyroxine) 1.02 ng/dL (0.89-1.76)
[2024-08-20 06:48] LABS: Calcium 8.4 mg/dL (8.7-10.4); Chloride 109 mmol/L (98-107)
[2024-08-20 07:03] LABS: Band Neutrophils % (manual) 0; Basophils % (manual) 0 (0.0-2.0); Blast Cells 0; Eosinophils % (manual) 0 (0-7); Metamyelocytes % 0; Myelocytes % 0; Promyelocytes % 0
[2024-08-20 08:00] LABS: Lymphocytes % (manual) 74 (10.0-50.0); Macrocytosis Slight; Monocytes % (manual) 3 (0-12); Platelet Estimate Decreased; Reactive Lymphocytes 6
[2024-08-20] MEDS: VANCOMYCIN 750mg/150ml 150 ML IV SCH (10:18)
--- NOTE | 2024-08-20 10:30 | DVHPNRES ---
Progress Note Date Seen: August 20, 2024 Resident Creating Document: BERNIE NUNN RESIDENT Has the PT tested + for MRSA If YES, has PT been informed?: No Medical Necessity Reason Pt with a Central, PICC or Fol: No Medical Necessity Reason History of Present Illness A 73y old male with a known history of chronic lymphocytic leukemia, COPD, DVT who was brought in by his daughter this afternoon due to new-onset confusion and abnormal behavior. According to the daughter, the patient was acting weird and confused, which was a sudden change from baseline. He was drinking cleaning products from the kitchen. There were no reported seizures, no urinary or fecal incontinence, and no loss of consciousness. The daughter denies recent trauma or falls. In addition, the patient has had a productive cough for the past 2 days. No fever was reported at home. But at admission, was foun T more than 100. There has been no recent travel, known sick contacts, or antibiotic use. Daughter is reliable historian and reports good adherence to home medications Past Medical History: Chronic lymphocytic leukemia, COPD, Hypertension, CHF with preserved EF? , Depression/anxiety, History of thrombocytopenia, History of DVT (on anticoagulation), Glaucoma and schizophrenia Past surgical history: Nasal septum repair Social History: lives at home with children, smoked in his twenties and abuse alcohol in his thirties. Family history noncontributory 08/20/2024 Patient is a 73-year-old male currently on admission but does not know why. Main informant was his daughter Fallon cotton. According to the daughter, patient is a 73-year-old male with a past medical history of CLL, COPD, and COVID pneumonia in 2019 complicated by DVT and schizophrenia for which she takes olanzapine. Whilst at work yesterday, she got a call from her siblings that their dad was acting abnormal, confused and that he had use " cleaning products" thinking it was water. The change in mental status was sudden change from his baseline. At home patient felt feverish.Also, has been coughing a lot daily without any sputum production. Given the confusion and the elevated temperature daughter brought him to the Emergency to be evaluated. In the ED, initial temperature meaures 101.6, HR: 98; WBC: 25.2. CT head revealed No acute intracranial hemorrhage and Bilateral maxillary ethmoid sphenoid sinusitis. Chest x-ray revealed Pulmonary vascular congestion. Underlying infectious process can not be excluded. Patient was started on vancomycin, ceftriaxone and azithromycin. This morning at the time of my evaluation patient is communicating he is alert oriented but that is sure of why he was admitted to the hospital. Subjective Review of Systems Constitutional: Denies fever no chills no feeling of malaise HEENT: Denies headache, ear pain, ear discharges, conjunctivitis, nasal discharge throat pain Cardiovascular: Denies chest pain, palpitation, orthopnea, PND, or pedal edema Respiratory: shortness of breath, dry cough, denies sputum production, hemoptysis, GI: Denies abdominal pain, nausea, vomiting, diarrhea, hematemesis, hematochezia, : Denies frequency, urgency, hematuria, Endocrine: Denies unintentional weight gain or weight loss, feeling of hot flashes, [place]: Denies easy bruising, bleeding disorders, epistaxis Musculoskeletal: Denies joint pains, muscle aches Psych: No evidence of depression, iron, suicidal ideation Objective vital signs Vital Sign Date Time Temp Pulse Resp B/P (MAP) Pulse Ox O2 Delivery O2 Flow Rate FiO2 08/20/24 08:18 57 18 94 Nasal Cannula* 2 08/20/24 08:00 98.1 104/47 (66) 98.1 Total Intake and Output 08/19/24 08/19/24 08/20/24 15:00 23:00 07:00 Intake Total 2150 ml 250 ml Output Total 450 ml 1400 ml Balance 1700 ml -1150 ml medications Current Medications Medications Dose Ordered Sig/Sasha Route Start Time Stop Time Status Last Admin Dose Admin Vancomycin HCl 0 ml @ 0 mls/hr UD IV 08/19/24 20:45 Ceftriaxone Sodium 50 ml @ 100 mls/hr DAILY@09 IV 08/19/24 20:45 08/20/24 09:29 100 MLS/HR Enoxaparin Sodium 80 mg Q12HR SC 08/19/24 22:00 08/19/24 22:46 80 MG Ketorolac Tromethamine 15 mg Q6HPRN PRN IV 08/19/24 21:15 08/24/24 21:14 Albuterol 2.5 mg Q8HPRN PRN NEB 08/19/24 22:15 Ipratropium [place] 0.5 mg Q8HPRN PRN NEB 08/19/24 22:15 Acetaminophen 650 mg Q4HP PRN PO 08/19/24 22:45 Azithromycin 250 ml @ 125 mls/hr DAILY@2000 IV 08/20/24 20:00 Vancomycin HCl 150 ml @ 150 mls/hr Q12H IV 08/20/24 10:00 Examination General Appearance: Alert, Oriented X3, Cooperative, No acute distress HEENT: Atraumatic, PERRLA, EOMI, Mucous membrane moist/pink Respiratory: mild crackles, adequate air movement Cardiovascular: Regular rate, Normal S1, Normal S2, No murmurs, no chest wall tenderness Abdominal: NO distention, no tenderness, bowel sounds present, no scars noted Extremities: No clubbing, No cyanosis, No edema, Normal pulses, No tenderness/swelling Skin: No rashes, No breakdown, No significant lesion Neuro: Normal gait, Normal speech, Strength at 5/5 X4 ext, Normal tone, Sensation intact, Cranial nerves 3-12 NL, Reflexes 2+ Psych/Mental Status: Mental status NL, Mood NL laboratory and microbiology Laboratory Tests 08/20/24 05:03 Test 08/20/24 05:03 Range/Units Serum Glucose 105 74-106 mg/dL Problem List/Assessment/Plan Problem List/Assessment/Plan Assessment Sepsis due to possible pneumonia gram+/gram- Acute metabolic encephalopathy due to sepsis Pneumonia gram+/gram - Pneumonitis Chronic lymphocytic leukemia. Chronic obstructive pulmonary disease, non in exacrebation Hypertensive heart disease with diastolic dysfunction H/o Left leg deep venous thrombosis. Thrombocytopenia. Depression/anxiety Secondary hypercoagulable state plan Telemetry NS 1 LT Azithromycin Ceftriaxone Vancomycin Enoxaparin 80 mg BID sc Pending blood culture Pending CT scan of abdomen/pelvis Breathing treatments resume home medication Goal of care discussed for more than 20 minutes: Full code Case and plan discussed with Dr. Oliva Plan discussed with: Patient Date of Service: August 20, 2024 Billing Provider: ETIENNE OLIVA MD Common Visit Codes: [id number] INP/OBS CARE(HIGH) BERNIE NUNN RESIDENT August 20, 2024 10:30 ETIENNE OLIVA MD August 20, 2024 17:45
[2024-08-20] MEDS: LATANOPROST 0.005 % OPTH(EYE) SOL 2.5ML EACHEYE SCH (18:00)
[2024-08-20] MEDS: AZITHROMYCIN 500MG/ 250ML 250 ML IV SCH (20:21)
[2024-08-20] MEDS: traZODone HCL 50 MG TAB PO SCH (22:31)
[2024-08-21] VITALS (9 sets, daily range): BP systolic 97–113; BP diastolic 65–76; PULSE 55–79; RESP 16–20; TEMP 96.9–97.5; O2SAT 93–97
[2024-08-21] MEDS: cloNIDine HCL 0.1 MG TAB PO SCH (09:26)
[2024-08-21] MEDS: OLANZapine 5 MG TAB PO SCH (09:27)
[2024-08-21] MEDS ORDERED: PATIENTS OWN MEDICATION (Olanzapine 10 MG) PO SCH (10:00)
[2024-08-21 10:21] LABS: Hematocrit 38.8 % (41.0-53.0); Hemoglobin 13.1 g/dL (13.5-17.5); Mean Corpuscular Volume 101.5 fL (80.0-100.0); Red Blood Cells 3.82 10^6/uL (4.5-5.90); White Blood Cell 25.3 10^3/uL (4.4-10.8)
[2024-08-21 10:23] LABS: Mean Corpuscular Hemoglobin 34.3 pg (28.0-32.0); Mean Corpuscular Hgb Conc. 33.7 g/dL (32.0-36.0); Platelet Count (auto) 125 10^3/uL (140-450); Red Cell Distribution Width 14.2 % (11.8-14.3)
[2024-08-21 10:24] LABS: Sodium 139 mmol/L (136-145)
[2024-08-21 10:25] LABS: Anion Gap 7 (5-15); Carbon Dioxide 22 mmol/L (20-31)
[2024-08-21 10:26] LABS: Calcium 9.2 mg/dL (8.7-10.4); Chloride 110 mmol/L (98-107)
[2024-08-21 10:30] LABS: Glucose 99 mg/dL (74-106)
[2024-08-21 10:31] LABS: BUN/Creatinine Ratio 6.7 (10.0-20.0)
[2024-08-21 10:33] LABS: Blood Urea Nitrogen 6 mg/dL (9-23)
[2024-08-21 10:49] LABS: Basophils % (manual) 0 (0.0-2.0); Blast Cells 0; Metamyelocytes % 0; Myelocytes % 0; Promyelocytes % 0; Reactive Lymphocytes 0
[2024-08-21 12:03] LABS: Band Neutrophils % (manual) 2; Eosinophils % (manual) 1 (0-7); Lymphocytes % (manual) 79 (10.0-50.0); Monocytes % (manual) 5 (0-12)
[2024-08-21 12:05] LABS: Macrocytosis Slight; Platelet Estimate Decreased
--- NOTE | 2024-08-21 12:51 | DVHINCON2 ---
Date of service: August 21, 2024 History of Present Illness 73-year-old male admitted secondary altered mental status after ingestion of household dumper mold cleaner. Patient denies any abdominal pain. Patient does have a hi story of chronic lymphocytic leukemia currently being followed by oncologist and not on chemotherapy at this time. His daughter is an excellent historian and reports that they have seen enlarged lymph nodes in previous imaging studies that have been stable. Past Medical History Chronic lymphocytic leukemia, COPD, Hypertension, CHF , Depression/anxiety, History of thrombocytopenia, History of DVT (on anticoagulation), Glaucoma Past Surgical History No recent abdominal surgeries Family History: Diabetes mellitus G8 SISTER FH: cancer G8 MOTHER Family History Noncontributory Social History No alcohol, tobacco, IV drug use Allergies: Coded Allergies: NO KNOWN ALLERGIES (Unverified , 05/31/10) Home Meds Active Scripts Methylprednisolone (Medrol Dosepak) 4 Mg [place], 4 MG PO UD for 6 Days, #21 TAB UAD Prov:DRAKE BRYANT [employer] 04/03/24 Reported Medications Latanoprost (LATANOPROST) 0.005 % Jacqueline, 1 DROP EACHEYE QPM, #7.5 ML 3 Refills 04/01/21 [place]-3 Fatty Acids (FISH OIL) Unknown Strength Cap, PO DAILY, CAP 01/27/20 Multiple Vitamins W/ Minerals (Multivitamin Adults 50+) 1 Tab Tab, 1 TAB PO DAILY, TAB 01/27/20 Olanzapine (OLANZAPINE) 2.5 Mg Tab, 10 MG PO DAILY, TAB 01/27/20 Clonidine HCl (Clonidine Hydrochloride) 0.1 Mg Tab, 0.3 MG PO DAILY, TAB 01/27/20 Trazodone HCl (Trazodone Hydrochloride) 50 Mg Tab, 100 MG PO HS, TAB 01/27/20 Current Medications Current Medications Medications (Trade) Dose Ordered Sig/Sasha Route PRN Reason Start Time Stop Time Status Last Admin Azithromycin 250 ml @ 125 mls/hr DAILY@1999 IV 08/20/24 20:00 08/20/24 20:21 Clonidine HCl (Catapres Tablet) 0.3 mg DAILY PO 08/21/24 10:00 08/21/24 09:26 Latanoprost (Xalatan) 1 drop QPM EACHEYE 08/20/24 18:00 Trazodone HCl (Desyrel) 100 mg HS PO 08/20/24 22:00 08/20/24 22:31 Patient Own Medication 10 mg DAILY PO 08/21/24 10:00 UNV Olanzapine (ZyPREXA Tablet) 10 mg DAILY PO 08/21/24 10:00 08/21/24 09:27 Vital Signs Vital Signs Date Time Temp Pulse Resp B/P (MAP) Pulse Ox O2 Delivery O2 Flow Rate FiO2 08/21/24 09:26 113/74 08/21/24 09:00 97.2 67 16 94 97.2 08/21/24 06:04 Nasal Cannula 2.0 08/21/24 06:04 28 Physical Exam GEN: Lethargic male in no acute distress. HEENT: Normocephalic atraumatic. Moist mucous membranes. Anicteric sclerae. CV: RRR Respiratory: CTAB ABD: Soft. Nontender nondistended. CT of the abdomen and pelvis: Lobulated intraperitoneal mass of the level of L3 measuring 6 x 3 x 3 cm which may represent a confluence of mesenteric lymph nodes. Labs/Diagnostic Data Labs Test 08/21/24 06:43 08/20/24 05:03 08/19/24 23:25 08/19/24 20:53 Range/Units White Blood Count 25.3 H 4.4-10.8 10^3/uL Red Blood Count 3.82 L 4.5-5.90 10^6/uL Hemoglobin 13.1 L 13.5-17.5 g/dL Hematocrit 38.8 L 41.0-53.0 % Mean Corpuscular Volume 101.5 H 80.0-100.0 fL Mean Corpuscular Hemoglobin 34.3 H 28.0-32.0 pg Mean Corpuscular Hemoglobin Concent 33.7 32.0-36.0 g/dL Red Cell Distribution Width 14.2 11.8-14.3 % Platelet Count 125 L 140-450 10^3/uL Mean Platelet Volume 8.5 6.9-10.8 fL Neutrophils (%) (Auto) 37.0-80.0 % Lymphocytes (%) (Auto) 10.0-50.0 % Monocytes (%) (Auto) 0.0-12.0 % Basophils (%) (Auto) 0.0-2.0 % Neutrophils # (Auto) 1.6-8.6 10 ^3/uL Lymphocytes # (Auto) 0.4-5.4 10 ^3/uL Monocytes # (Auto) 0-1.3 10 ^3/uL Differential Total Cells Counted 100.0 100 Neutrophils % (Manual) 13 L 37.0-80.0 Band Neutrophils % (Manual) 2 Lymphocytes % (Manual) 79 H 10.0-50.0 Monocytes % (Manual) 5 0-12 Eosinophils % (Manual) 1 0-7 Basophils % (Manual) 0 0.0-2.0 Metamyelocytes % (manual) 0 Myelocytes % (Manual) 0 Promyelocytes % (Manual) 0 Blast Cells % (Manual) 0 Reactive Lymphocytes 0 Platelet Estimate Decreased Macrocytosis Slight Sodium Level 139 136-145 mmol/L Potassium Level 4.0 3.5-5.1 mmol/L Chloride Level 110 H 98-107 mmol/L Carbon Dioxide Level 22 20-31 mmol/L Anion Gap 7 5-15 Blood Urea Nitrogen 6 L 9-23 mg/dL Creatinine 0.89 0.700-1.30 mg/dL Glomerular Filtration Rate Calc 91 >90 mL/min BUN/Creatinine Ratio 6.7 L 10.0-20.0 Serum Glucose 99 74-106 mg/dL Calcium Level 9.2 8.7-10.4 mg/dL B-Type Natriuretic Peptide 39.31 0-100 pg/mL Total Bilirubin 0.6 0.2-1.0 mg/dL Aspartate Amino Transferase (AST) 15 13-40 U/L Alanine Aminotransferase (ALT) 12 7-40 U/L Alkaline Phosphatase 113 46-116 U/L Total Protein 6.3 5.7-8.2 g/dL Albumin 4.0 3.2-4.8 g/dL Free Thyroxine (T4) Calculated 1.02 0.89-1.76 ng/dL Free Triiodothyronine (T3) pg/mL 2.28 L 2.3-4.2 pg/mL Influenza Type A Antigen Negative Negative Influenza Type B Antigen Negative Negative SARS-CoV-2 Antigen (Rapid) Negative NEGATIVE Direct Bilirubin 0.3 <0.3 mg/dL Ammonia 12 11-32 umol/L Lactate Dehydrogenase 179 120-246 U/L Vitamin B12 Level 805 211-911 pg/mL Vitamin D 25-Hydroxy 38.8 30.0-100 ng/mL Folic Acid 21.60 >5.38 ng/mL Thyroid Stimulating Hormone (TSH) 0.55 0.55-4.78 uIU/mL Test 08/19/24 16:52 08/19/24 16:38 Range/Units Lactic Acid Level 1.7 0.4-2.0 mmol/L Plasma/Serum Blood Alcohol < 3.0 <10 mg/dL Urine Color Yellow Yellow Urine Clarity Clear Clear Urine pH 7.0 5.0-9.0 Urine Specific [place] 1.019 1.001-1.035 Urine Protein Negative Negative Urine Ketones Negative Negative Urine Blood Negative Negative /uL Urine Nitrite Negative Negative Urine Bilirubin Negative Negative Urine Urobilinogen Normal Negative mg/dL Urine Leukocyte Esterase Negative Negative /uL Urine RBC 1 0 - 3 /hpf Urine Microscopic WBC < 1 0-3 /HPF Urine Squamous Epithelial Cells Few <5 /hpf Urine Bacteria None seen None Seen /hpf Urine Glucose Normal Normal mg/dL Urine Opiates Screen Neg NEGATIVE Urine Fentanyl Screen Neg NEGATIVE Urine Barbiturates Screen Neg NEGATIVE Urine Phencyclidine Screen Neg NEGATIVE Urine Amphetamines Screen Neg NEGATIVE Urine Benzodiazepines Screen Neg NEGATIVE Urine Cocaine Screen Neg NEGATIVE Urine Cannabinoids Screen Neg NEGATIVE Microbiology Date/Time Source Procedure Growth Status 08/19/24 23:25 Nose MRSA Screen - Final Complete 08/19/24 16:52 Blood Blood Culture - Preliminary NO GROWTH AFTER 24 HOURS OF INCUBATION. Resulted 08/19/24 16:38 Voided Urine Urine Culture - Preliminary Resulted Assessment 1. CLL with intra-abdominal mesenteric lymph nodes likely unchanged from his previous imaging studies. Plan/Recommendation 1. I recommended the daughter to have the patient follow up with his oncologist after he is discharged from the hospital. No indication for acute surgical intervention at this time as this is likely a chronic finding. Plan discussed with: Daughter ROXANNE SALMON MD August 21, 2024 12:51
--- NOTE | 2024-08-21 12:53 | DVHPNRES ---
Progress Note Date Seen: August 21, 2024 Resident Creating Document: BERNIE NUNN RESIDENT Has the PT tested + for MRSA If YES, has PT been informed?: No Medical Necessity Reason Pt with a Central, PICC or Fol: No Medical Necessity Reason History of Present Illness A 73y old male with a known history of chronic lymphocytic leukemia, COPD, DVT who was brought in by his daughter this afternoon due to new-onset confusion and abnormal behavior. According to the daughter, the patient was acting weird and confused, which was a sudden change from baseline. He was drinking cleaning products from the kitchen. There were no reported seizures, no urinary or fecal incontinence, and no loss of consciousness. The daughter denies recent trauma or falls. In addition, the patient has had a productive cough for the past 2 days. No fever was reported at home. But at admission, was foun T more than 100. There has been no recent travel, known sick contacts, or antibiotic use. Daughter is reliable historian and reports good adherence to home medications Past Medical History: Chronic lymphocytic leukemia, COPD, Hypertension, CHF with preserved EF? , Depression/anxiety, History of thrombocytopenia, History of DVT (on anticoagulation), Glaucoma and schizophrenia Past surgical history: Nasal septum repair Social History: lives at home with children, smoked in his twenties and abuse alcohol in his thirties. Family history noncontributory 08/20/2024 Patient is a 73-year-old male currently on admission but does not know why. Main informant was his daughter Fallon cotton. According to the daughter, patient is a 73-year-old male with a past medical history of CLL, COPD, and COVID pneumonia in 2019 complicated by DVT and schizophrenia for which she takes olanzapine. Whilst at work yesterday, she got a call from her siblings that their dad was acting abnormal, confused and that he had use " cleaning products" thinking it was water. The change in mental status was sudden change from his baseline. At home patient felt feverish.Also, has been coughing a lot daily without any sputum production. Given the confusion and the elevated temperature daughter brought him to the Emergency to be evaluated. In the ED, initial temperature meaures 101.6, HR: 98; WBC: 25.2. CT head revealed No acute intracranial hemorrhage and Bilateral maxillary ethmoid sphenoid sinusitis. Chest x-ray revealed Pulmonary vascular congestion. Underlying infectious process can not be excluded. Patient was started on vancomycin, ceftriaxone and azithromycin. This morning at the time of my evaluation patient is communicating he is alert oriented but that is sure of why he was admitted to the hospital. PN: 08/20 Patient was seen and examine. Daughter by the bedside. He has no complaints. His voice sounds "raspy" and he has minor cough. Also, his CT abdominal scan Lobulated intraperitoneal mass at the level of L3 measuring 6 cm in length by 3 x 3 cm. This may represent a confluence of mesenteric lymph nodes or small-bowel mass. (Noted in series 2, images 46-57; series 601 images 54- 58.). I have consulted GI and surgery to aid in the care of this patient. Subjective Review of Systems Constitutional: Denies fever no chills no feeling of malaise HEENT: Denies headache, ear pain, ear discharges, conjunctivitis, nasal discharge throat pain,"raspy throat" Cardiovascular: Denies chest pain, palpitation, orthopnea, PND, or pedal edema Respiratory: rib pains, onn 2L oxygen, cough; denies sputum production, hemoptysis, GI: Denies abdominal pain, nausea, vomiting, diarrhea, hematemesis, hematochezia, : Denies frequency, urgency, hematuria, Endocrine: Denies unintentional weight gain or weight loss, feeling of hot flashes, [place]: Denies easy bruising, bleeding disorders, epistaxis Musculoskeletal: Denies joint pains, muscle aches Psych: No evidence of depression, iron, suicidal ideation Objective vital signs Vital Sign Date Time Temp Pulse Resp B/P (MAP) Pulse Ox O2 Delivery O2 Flow Rate FiO2 08/21/24 09:26 113/74 08/21/24 09:00 97.2 67 16 94 97.2 08/21/24 06:04 Nasal Cannula 2.0 08/21/24 06:04 28 Total Intake and Output 08/20/24 08/20/24 08/21/24 15:00 23:00 07:00 Intake Total 200 ml 350 ml 950 ml Output Total 500 ml 800 ml Balance -300 ml 350 ml 150 ml medications Current Medications Medications Dose Ordered Sig/Sasha Route Start Time Stop Time Status Last Admin Dose Admin Vancomycin HCl 0 ml @ 0 mls/hr UD IV 08/19/24 20:45 Ceftriaxone Sodium 50 ml @ 100 mls/hr DAILY@09 IV 08/19/24 20:45 08/21/24 09:26 100 MLS/HR Enoxaparin Sodium 80 mg Q12HR SC 08/19/24 22:00 08/21/24 09:27 80 MG Ketorolac Tromethamine 15 mg Q6HPRN PRN IV 08/19/24 21:15 08/24/24 21:14 Albuterol 2.5 mg Q8HPRN PRN NEB 08/19/24 22:15 Ipratropium [place] 0.5 mg Q8HPRN PRN NEB 08/19/24 22:15 Acetaminophen 650 mg Q4HP PRN PO 08/19/24 22:45 Azithromycin 250 ml @ 125 mls/hr DAILY@2000 IV 08/20/24 20:00 08/20/24 20:21 125 MLS/HR Vancomycin HCl 150 ml @ 150 mls/hr Q12H IV 08/20/24 10:00 08/21/24 10:00 150 MLS/HR Clonidine HCl 0.3 mg DAILY PO 08/21/24 10:00 08/21/24 09:26 0.3 MG Latanoprost 1 drop QPM EACHEYE 08/20/24 18:00 Trazodone HCl 100 mg HS PO 08/20/24 22:00 08/20/24 22:31 100 MG Patient Own Medication 10 mg DAILY PO 08/21/24 10:00 UNV Olanzapine 10 mg DAILY PO 08/21/24 10:00 08/21/24 09:27 10 MG Examination General Appearance: Alert, Oriented X3, Cooperative, No acute distress HEENT: Atraumatic, PERRLA, EOMI, Mucous membrane moist/pink Respiratory: Clear to auscultation, Normal air movement Cardiovascular: Regular rate, Normal S1, Normal S2, No murmurs, no chest wall tenderness Abdominal: NO distention, no tenderness, bowel sounds present, no scars noted Extremities: No clubbing, No cyanosis, No edema, Normal pulses, No tenderness/swelling Skin: No rashes, No breakdown, No significant lesion Neuro: Normal gait, Normal speech, Strength at 5/5 X4 ext, Normal tone, Sensation intact, Cranial nerves 3-12 NL, Reflexes 2+ Psych/Mental Status: Mental status NL, Mood NL laboratory and microbiology Laboratory Tests 08/21/24 06:43 Test 08/21/24 06:43 Range/Units Serum Glucose 99 74-106 mg/dL Microbiology Date/Time Source Procedure Growth Status 08/19/24 23:25 Nose MRSA Screen - Final Complete 08/19/24 16:52 Blood Blood Culture - Preliminary NO GROWTH AFTER 24 HOURS OF INCUBATION. Resulted 08/19/24 16:38 Voided Urine Urine Culture - Preliminary Resulted Problem List/Assessment/Plan Problem List/Assessment/Plan Assessment Sepsis due to possible pneumonia gram+/gram- Acute metabolic encephalopathy due to sepsis Pneumonia gram+/gram - Pneumonitis Chronic lymphocytic leukemia. Chronic obstructive pulmonary disease, non in exacrebation Hypertensive heart disease with diastolic dysfunction H/o Left leg deep venous thrombosis. Thrombocytopenia. Depression/anxiety Secondary hypercoagulable state Lobulated intraperitoneal mass at the level of L3 measuring 6 cm in length by 3 x 3 cm plan Azithromycin Ceftriaxone Vancomycin Enoxaparin 80 mg BID sc Breathing treatments resume home medication Pending sputum culture Goal of care discussed for more than 16 minutes: Full code Case and plan discussed with Dr. Oliva Plan discussed with: Patient My Orders My Orders Orders - BERNIE NUNN RESIDENT Procedure Category Date Status Time Olanzapine Tablet PHA 08/21/24 In Process (Zyprexa Tablet) 10:00 Transfer Orders XFER 08/21/24 Transmitted 09:44 * [facility] [place] Machine Operator CONS 08/21/24 Verified 12:12 Npo (Nothing By DIET 08/21/24 Verified Mouth) Diet Lunch Date of Service: August 21, 2024 Billing Provider: ETIENNE OLIVA MD Common Visit Codes: [id number] INP/OBS CARE(HIGH) BERNIE NUNN August 21, 2024 12:53 ETIENNE OLIVA MD August 21, 2024 18:56
[2024-08-21] MEDS ORDERED: ALBUTEROL SULF 2.5 MG/0.5ML(0.5%) NEB SOLN NEB PRN (13:00)
[2024-08-21] MEDS ORDERED: IPRATROPIUM BROM 0.5 MG/2.5ML INH SOL NEB PRN (13:00)
[2024-08-21] MEDS: FUROSEMIDE 20 MG/2 ML VIAL IV ONE (19:10)
--- NOTE | 2024-08-21 19:24 | DVHINCON2 ---
Date of service: August 21, 2024 Referring Physician Nahomi Reason for Consultation Ingestion of household grain cleaner History of Present Illness The patient is a 73-year-old male with CLL, hypertension, CHF , history of COPD, history of COVID, history of schizophrenia history of DVT, admitted after ing esting household grain cleaner, noted to have mental status changes. Patient was drinking household grain cleaner thinking it was water. Patient noted to have fever upon admission and started on IV antibiotics. Imaging tests can not rule out pneumonia. Patient is breathing normally. Chest x-ray shows no sign of esophageal perforation.. Abdominal CT shows no significant findings then other than intraperitoneal mass which has been seen previously on imaging per the chart. Patient is currently NPO sitting up in bed. He is resting comfortably. Past Medical History As above Family History: Diabetes mellitus G8 SISTER FH: cancer G8 MOTHER Family History No gastrointestinal diseases or malignancies Social History No significant tobacco, alcohol or recreational drug use currently Allergies: Coded Allergies: NO KNOWN ALLERGIES (Unverified , 05/31/10) Home Meds Active Scripts Methylprednisolone (Medrol Dosepak) 4 Mg [place], 4 MG PO UD for 6 Days, #21 TAB UAD Prov:DRAKE [employer]YANT [employer] DR[employer] 04/03/24 Reported Medications Latanoprost (LATANOPROST) 0.005 % Jacqueline, 1 DROP EACHEYE QPM, #7.5 ML 3 Refills 04/01/21 [place]-3 Fatty Acids (FISH OIL) Unknown Strength Cap, PO DAILY, CAP 01/27/20 Multiple Vitamins W/ Minerals (Multivitamin Adults 50+) 1 Tab Tab, 1 TAB PO DAILY, TAB 01/27/20 Olanzapine (OLANZAPINE) 2.5 Mg Tab, 10 MG PO DAILY, TAB 01/27/20 Clonidine HCl (Clonidine Hydrochloride) 0.1 Mg Tab, 0.3 MG PO DAILY, TAB 01/27/20 Trazodone HCl (Trazodone Hydrochloride) 50 Mg Tab, 100 MG PO HS, TAB 01/27/20 Current Medications Current Medications Medications (Trade) Dose Ordered Sig/Sasha Route PRN Reason Start Time Stop Time Status Last Admin Azithromycin 250 ml @ 125 mls/hr DAILY@1999 IV 08/20/24 20:00 08/20/24 20:21 Clonidine HCl (Catapres Tablet) 0.3 mg DAILY PO 08/21/24 10:00 08/21/24 09:26 Trazodone HCl (Desyrel) 100 mg HS PO 08/20/24 22:00 08/20/24 22:31 Patient Own Medication 10 mg DAILY PO 08/21/24 10:00 UNV Olanzapine (ZyPREXA Tablet) 10 mg DAILY PO 08/21/24 10:00 08/21/24 09:27 Albuterol (Ventolin Medneb) 2.5 mg Q6HPRN PRN NEB SHORTNESS OF BREATH 08/21/24 13:00 Ipratropium [place] (Atrovent Medneb) 0.5 mg Q6HPRN PRN NEB SHORTNESS OF BREATH 08/21/24 13:00 Dextrose/Sodium Chloride 1,000 ml @ 75 mls/hr [id number] IV 08/22/24 08:00 UNV Review of Systems Unable to be obtained other than per HPI. We will discuss with the patient's family Vital Signs Vital Signs Date Time Temp Pulse Resp B/P (MAP) Pulse Ox O2 Delivery O2 Flow Rate FiO2 08/21/24 19:10 115/72 08/21/24 17:00 97.1 55 16 93 97.1 08/21/24 10:00 Nasal Cannula 2.0 08/21/24 10:00 28 Physical Exam General: Awake and or alert lying in bed no distress Head: NC/AT EOMI PERRLA poor dentition, blackish film on tongue, no evidence of mouth ulcers Heart: Regular rate and rhythm Lung: Clear to auscultation bilaterally anterior Abdomen: Soft nontender nondistended Extremity: No clubbing cyanosis or edema Labs/Diagnostic Data Labs Test 08/21/24 06:43 08/20/24 05:03 08/19/24 23:25 08/19/24 20:53 Range/Units White Blood Count 25.3 H 4.4-10.8 10^3/uL Red Blood Count 3.82 L 4.5-5.90 10^6/uL Hemoglobin 13.1 L 13.5-17.5 g/dL Hematocrit 38.8 L 41.0-53.0 % Mean Corpuscular Volume 101.5 H 80.0-100.0 fL Mean Corpuscular Hemoglobin 34.3 H 28.0-32.0 pg Mean Corpuscular Hemoglobin Concent 33.7 32.0-36.0 g/dL Red Cell Distribution Width 14.2 11.8-14.3 % Platelet Count 125 L 140-450 10^3/uL Mean Platelet Volume 8.5 6.9-10.8 fL Neutrophils (%) (Auto) 37.0-80.0 % Lymphocytes (%) (Auto) 10.0-50.0 % Monocytes (%) (Auto) 0.0-12.0 % Basophils (%) (Auto) 0.0-2.0 % Neutrophils # (Auto) 1.6-8.6 10 ^3/uL Lymphocytes # (Auto) 0.4-5.4 10 ^3/uL Monocytes # (Auto) 0-1.3 10 ^3/uL Differential Total Cells Counted 100.0 100 Neutrophils % (Manual) 13 L 37.0-80.0 Band Neutrophils % (Manual) 2 Lymphocytes % (Manual) 79 H 10.0-50.0 Monocytes % (Manual) 5 0-12 Eosinophils % (Manual) 1 0-7 Basophils % (Manual) 0 0.0-2.0 Metamyelocytes % (manual) 0 Myelocytes % (Manual) 0 Promyelocytes % (Manual) 0 Blast Cells % (Manual) 0 Reactive Lymphocytes 0 Platelet Estimate Decreased Macrocytosis Slight Sodium Level 139 136-145 mmol/L Potassium Level 4.0 3.5-5.1 mmol/L Chloride Level 110 H 98-107 mmol/L Carbon Dioxide Level 22 20-31 mmol/L Anion Gap 7 5-15 Blood Urea Nitrogen 6 L 9-23 mg/dL Creatinine 0.89 0.700-1.30 mg/dL Glomerular Filtration Rate Calc 91 >90 mL/min BUN/Creatinine Ratio 6.7 L 10.0-20.0 Serum Glucose 99 74-106 mg/dL Calcium Level 9.2 8.7-10.4 mg/dL B-Type Natriuretic Peptide 39.31 0-100 pg/mL Total Bilirubin 0.6 0.2-1.0 mg/dL Aspartate Amino Transferase (AST) 15 13-40 U/L Alanine Aminotransferase (ALT) 12 7-40 U/L Alkaline Phosphatase 113 46-116 U/L Total Protein 6.3 5.7-8.2 g/dL Albumin 4.0 3.2-4.8 g/dL Free Thyroxine (T4) Calculated 1.02 0.89-1.76 ng/dL Free Triiodothyronine (T3) pg/mL 2.28 L 2.3-4.2 pg/mL Influenza Type A Antigen Negative Negative Influenza Type B Antigen Negative Negative SARS-CoV-2 Antigen (Rapid) Negative NEGATIVE Direct Bilirubin 0.3 <0.3 mg/dL Ammonia 12 11-32 umol/L Lactate Dehydrogenase 179 120-246 U/L Vitamin B12 Level 805 211-911 pg/mL Vitamin D 25-Hydroxy 38.8 30.0-100 ng/mL Folic Acid 21.60 >5.38 ng/mL Thyroid Stimulating Hormone (TSH) 0.55 0.55-4.78 uIU/mL Test 08/19/24 16:52 08/19/24 16:38 Range/Units Lactic Acid Level 1.7 0.4-2.0 mmol/L Plasma/Serum Blood Alcohol < 3.0 <10 mg/dL Urine Color Yellow Yellow Urine Clarity Clear Clear Urine pH 7.0 5.0-9.0 Urine Specific [place] 1.019 1.001-1.035 Urine Protein Negative Negative Urine Ketones Negative Negative Urine Blood Negative Negative /uL Urine Nitrite Negative Negative Urine Bilirubin Negative Negative Urine Urobilinogen Normal Negative mg/dL Urine Leukocyte Esterase Negative Negative /uL Urine RBC 1 0 - 3 /hpf Urine Microscopic WBC < 1 0-3 /HPF Urine Squamous Epithelial Cells Few <5 /hpf Urine Bacteria None seen None Seen /hpf Urine Glucose Normal Normal mg/dL Urine Opiates Screen Neg NEGATIVE Urine Fentanyl Screen Neg NEGATIVE Urine Barbiturates Screen Neg NEGATIVE Urine Phencyclidine Screen Neg NEGATIVE Urine Amphetamines Screen Neg NEGATIVE Urine Benzodiazepines Screen Neg NEGATIVE Urine Cocaine Screen Neg NEGATIVE Urine Cannabinoids Screen Neg NEGATIVE Microbiology Date/Time Source Procedure Growth Status 08/19/24 23:25 Nose MRSA Screen - Final Complete 08/19/24 16:52 Blood Blood Culture - Preliminary NO GROWTH AFTER 48 HOURS OF INCUBATION. Resulted 08/19/24 16:38 Voided Urine Urine Culture - Preliminary Resulted Assessment 1. CLL 2. Possible pneumonia, leukocytosis 3. COPD history of CHF 4. History of ingestion of household grain cleaner, with no evidence of airway obstruction, difficulty breathing or esophageal perforation Problems(with codes): (1) Chest pain (2) COPD (chronic obstructive pulmonary disease) (3) Ingested substance, unknown drug (4) Leukocytosis (5) Confusion (6) Contusion of left hip, initial encounter Plan/Recommendation 1. Continue antibiotics 2. Keep the patient NPO 3. Consider EGD tomorrow 4. We will discuss findings with the patient's daughter and obtained consent 5. Please contact me for any changes in the patient's GI status, hematemesis, dysphagia, subcutaneous emphysema or other 6. We will follow up 7. Patient should be on proton pump inhibitor twice daily Plan discussed with: Patient KIERSTEN GORDON MD August 21, 2024 19:24
[2024-08-21] MEDS: D5W/SOD CHL 0.45% 1,000 ML IV ONE (20:11)
[2024-08-21] MEDS: PANTOPRAZOLE 40 MG/10 ML VIAL INJ IV SCH (22:58)
[2024-08-22] VITALS (12 sets, daily range): BP systolic 103–130; BP diastolic 65–80; PULSE 55–72; RESP 16–20; TEMP 96.8–98.7; O2SAT 95–98
[2024-08-22 06:50] LABS: Mean Corpuscular Volume 100.5 fL (80.0-100.0)
[2024-08-22 06:54] LABS: Hematocrit 38.4 % (41.0-53.0); Hemoglobin 13.2 g/dL (13.5-17.5); Mean Corpuscular Hemoglobin 34.6 pg (28.0-32.0); Mean Corpuscular Hgb Conc. 34.4 g/dL (32.0-36.0); Platelet Count (auto) 121 10^3/uL (140-450); Red Blood Cells 3.82 10^6/uL (4.5-5.90); Red Cell Distribution Width 14.2 % (11.8-14.3); White Blood Cell 22.3 10^3/uL (4.4-10.8)
[2024-08-22 06:57] LABS: Band Neutrophils % (manual) 0; Basophils % (manual) 0 (0.0-2.0); Blast Cells 0; Metamyelocytes % 0; Myelocytes % 0; Promyelocytes % 0
[2024-08-22] MEDS ORDERED: D5W/SOD CHL 0.45% 1,000 ML IV SCH (08:00)
[2024-08-22 08:57] LABS: Eosinophils % (manual) 1 (0-7); Lymphocytes % (manual) 83 (10.0-50.0); Macrocytosis Slight; Monocytes % (manual) 3 (0-12); Platelet Estimate Decreased; Reactive Lymphocytes 2
--- NOTE | 2024-08-22 17:49 | DVHPN2 ---
Subjective in bed resting Changes from previous H/P or p: No Changes Eyes: No Pain, No Vision change, No Conjunctivae inflammation, No Eyelid inflammation, No Other, No Redness ENT: No Ear pain, No Ear discharge, No Nose pain, No Nose discharge, No Nose congestion, No Mouth pain, No Mouth swelling, No Throat pain, No Throat swelling, No Other Cardiovascular: No Chest Pain, No Palpitations, No Orthopnea, No Paroxysmal Noc. Dyspnea, No Edema, No Lt Headedness, No Other Respiratory: Cough; No Dry, No Shortness of breath, No SOB with excertion, No Wheezing, No Hemoptysis, No Pleuritic Pain, No Sputum, No Other Gastrointestinal: No Nausea, No Vomiting, No Abdominal Pain, No Diarrhea, No Constipation, No Melena, No Hematochezia, No Other Genitourinary: No Dysuria, No Frequency, No Incontinence, No Hematuria, No Retention, No Other Musculoskeletal: No other, No neck pain, No shoulder pain, No arm pain, No back pain, No hand pain, No leg pain, No foot pain Skin: No Rash, No Lesions, No Jaundice, No Bruising, No Other Objective Vitals Vital Signs Date Time Temp Pulse Resp B/P (MAP) Pulse Ox O2 Delivery O2 Flow Rate FiO2 08/22/24 13:00 98.2 61 16 106/73 (84) 96 98.2 08/22/24 10:00 Nasal Cannula 2.0 08/22/24 10:00 28 Intake/Output Intake and Output 08/22/24 07:00 Intake Total 1730 ml Output Total 3500 ml Balance -1770 ml Intake Oral 1080 ml IV Total 650 ml Output Urine Total 3500 ml # Voids 3 General Appearance: Alert, Oriented X3 Lungs: Clear to auscultation Cardiovascular: Regular rate, Normal S1, Normal S2 Abdomen: Normal bowel sounds Medications Current Medications Medications Dose Ordered Sig/Sasha Route Start Time Stop Time Status Last Admin Dose Admin Vancomycin HCl 0 ml @ 0 mls/hr UD IV 08/19/24 20:45 Ceftriaxone Sodium 50 ml @ 100 mls/hr DAILY@09 IV 08/19/24 20:45 08/22/24 09:00 100 MLS/HR Enoxaparin Sodium 80 mg Q12HR SC 08/19/24 22:00 08/21/24 22:58 80 MG Ketorolac Tromethamine 15 mg Q6HPRN PRN IV 08/19/24 21:15 08/24/24 21:14 Albuterol 2.5 mg Q8HPRN PRN NEB 08/19/24 22:15 Acetaminophen 650 mg Q4HP PRN PO 08/19/24 22:45 Azithromycin 250 ml @ 125 mls/hr DAILY@2000 IV 08/20/24 20:00 08/21/24 20:20 125 MLS/HR Clonidine HCl 0.3 mg DAILY PO 08/21/24 10:00 08/21/24 09:26 0.3 MG Latanoprost 1 drop QPM EACHEYE 08/20/24 18:00 Trazodone HCl 100 mg HS PO 08/20/24 22:00 08/20/24 22:31 100 MG Patient Own Medication 10 mg DAILY PO 08/21/24 10:00 UNV Olanzapine 10 mg DAILY PO 08/21/24 10:00 08/22/24 11:05 10 MG Albuterol 2.5 mg Q6HPRN PRN NEB 08/21/24 13:00 Ipratropium [place] 0.5 mg Q6HPRN PRN NEB 08/21/24 13:00 Pantoprazole Sodium 40 mg BID IV 08/21/24 22:00 08/22/24 08:59 40 MG Vancomycin HCl 200 ml @ 200 mls/hr Q12HR IV 08/21/24 22:00 08/22/24 11:04 200 MLS/HR Laboratory Results Laboratory Tests 08/21/24 06:43 08/22/24 05:21 Urinalysis Test 08/19/24 16:38 Urine Color Yellow (Yellow) Urine Clarity Clear (Clear) Urine pH 7.0 (5.0-9.0) Urine Specific [place] 1.019 (1.001-1.035) Urine Protein Negative (Negative) Urine Ketones Negative (Negative) Urine Blood Negative /uL (Negative) Urine Nitrite Negative (Negative) Urine Bilirubin Negative (Negative) Urine Urobilinogen Normal mg/dL (Negative) Urine Leukocyte Esterase Negative /uL (Negative) Urine RBC 1 /hpf (0 - 3) Urine Microscopic WBC < 1 /HPF (0-3) Urine Squamous Epithelial Cells Few /hpf (<5) Urine Bacteria None seen /hpf (None Seen) Urine Glucose Normal mg/dL (Normal) Microbiology Microbiology Date/Time Source Procedure Growth Status 08/19/24 23:25 Nose MRSA Screen - Final Complete 08/19/24 16:52 Blood Blood Culture - Preliminary NO GROWTH AFTER 72 HOURS OF INCUBATION. Resulted 08/19/24 16:38 Voided Urine Urine Culture - Final Complete Assessment/Plan Assessment/Plan Sepsis due to possible pneumonia gram+/gram- Acute metabolic encephalopathy due to sepsis Pneumonia gram+/gram - Pneumonitis Chronic lymphocytic leukemia. Chronic obstructive pulmonary disease, non in exacrebation Hypertensive heart disease with diastolic dysfunction H/o Left leg deep venous thrombosis. Thrombocytopenia. Depression/anxiety Secondary hypercoagulable state Lobulated intraperitoneal mass at the level of L3 measuring 6 cm in length by 3 x 3 cm plan Azithromycin Ceftriaxone Vancomycin Enoxaparin 80 mg BID sc Breathing treatments resume home medication Pending sputum culture Plan discussed with: Patient Date of Service: August 22, 2024 Billing Provider: ETIENNE SERRANO MD Common Visit Codes: [id number] INP/OBS CARE(HIGH) ETIENNE SERRANO MD August 22, 2024 17:49
[2024-08-23] VITALS (7 sets, daily range): BP systolic 81–125; BP diastolic 48–80; PULSE 58–67; RESP 16–20; TEMP 97.8–98.6; O2SAT 94–97
--- NOTE | 2024-08-23 08:59 | PRN ---
Misceleneous Note Note Note August 23, 2024 Subjective: Patient tolerating a diet without dysphagia, chest pain, nausea vomiting or shortness of breath Current Medications Medications (Trade) Dose Ordered Sig/Sasha Route Start Time Stop Time Status Last Admin Dose Admin Vancomycin HCl 0 ml @ 0 mls/hr UD IV 08/19/24 20:45 Ceftriaxone Sodium 50 ml @ 100 mls/hr DAILY@09 IV 08/19/24 20:45 08/22/24 09:00 100 MLS/HR Enoxaparin Sodium (Lovenox) 80 mg Q12HR SC 08/19/24 22:00 08/22/24 21:20 80 MG Ketorolac Tromethamine (Toradol Injection) 15 mg Q6HPRN PRN IV 08/19/24 21:15 08/24/24 21:14 Albuterol (Ventolin Medneb) 2.5 mg Q8HPRN PRN NEB 08/19/24 22:15 Acetaminophen (Tylenol Tablet) 650 mg Q4HP PRN PO 08/19/24 22:45 Azithromycin 250 ml @ 125 mls/hr DAILY@1999 IV 08/20/24 20:00 08/22/24 20:19 125 MLS/HR Clonidine HCl (Catapres Tablet) 0.3 mg DAILY PO 08/21/24 10:00 08/21/24 09:26 0.3 MG Latanoprost (Xalatan) 1 drop QPM EACHEYE 08/20/24 18:00 08/22/24 18:00 1 DROP Trazodone HCl (Desyrel) 100 mg HS PO 08/20/24 22:00 08/22/24 21:20 100 MG Patient Own Medication 10 mg DAILY PO 08/21/24 10:00 UNV Olanzapine (ZyPREXA Tablet) 10 mg DAILY PO 08/21/24 10:00 08/22/24 11:05 10 MG Albuterol (Ventolin Medneb) 2.5 mg Q6HPRN PRN NEB 08/21/24 13:00 Ipratropium [place] (Atrovent Medneb) 0.5 mg Q6HPRN PRN NEB 08/21/24 13:00 Pantoprazole Sodium (Protonix) 40 mg BID IV 08/21/24 22:00 08/22/24 21:25 40 MG Vancomycin HCl 200 ml @ 200 mls/hr Q12HR IV 08/21/24 22:00 08/22/24 22:36 200 MLS/HR Alert and oriented NC/AT EOMI PERRLA Regular rate and rhythm Soft nontender nondistended abdomen No clubbing cyanosis or edema Impression: 1. Ingestion of household cleaning fluid 2. No evidence of dysphagia, airway edema or obstruction Recommendations: 1. Continue Protonix 2. Diet as tolerated 3. No indication for EGD at this time 4. Signing off 5. May discharge home from GI perspective 6. Outpatient follow up with Oncology KIERSTEN GORDON MD Aug 23, 2024 08:59
[2024-08-23 09:10] LABS: Hematocrit 38.7 % (41.0-53.0); Hemoglobin 13.4 g/dL (13.5-17.5); Mean Corpuscular Hemoglobin 34.6 pg (28.0-32.0); Mean Corpuscular Hgb Conc. 34.6 g/dL (32.0-36.0); Mean Corpuscular Volume 100.1 fL (80.0-100.0); Platelet Count (auto) 141 10^3/uL (140-450); Red Blood Cells 3.86 10^6/uL (4.5-5.90); Red Cell Distribution Width 13.8 % (11.8-14.3); White Blood Cell 25.2 10^3/uL (4.4-10.8)
[2024-08-23 09:13] LABS: Basophils % (manual) 0 (0.0-2.0); Blast Cells 0; Eosinophils % (manual) 0 (0-7); Metamyelocytes % 0; Myelocytes % 0; Promyelocytes % 0
[2024-08-23 09:18] LABS: Sodium 141 mmol/L (136-145)
[2024-08-23 09:19] LABS: Anion Gap 8 (5-15); Calcium 9.3 mg/dL (8.7-10.4); Carbon Dioxide 23 mmol/L (20-31)
[2024-08-23 09:20] LABS: Chloride 110 mmol/L (98-107)
[2024-08-23 09:24] LABS: BUN/Creatinine Ratio 6.6 (10.0-20.0); Glucose 104 mg/dL (74-106)
[2024-08-23 09:28] LABS: Blood Urea Nitrogen 6 mg/dL (9-23)
[2024-08-23 09:36] LABS: Band Neutrophils % (manual) 2; Lymphocytes % (manual) 85 (10.0-50.0); Monocytes % (manual) 2 (0-12); Reactive Lymphocytes 4
[2024-08-23 09:37] LABS: Macrocytosis Slight; Platelet Estimate Decreased
--- NOTE | 2024-08-23 18:52 | DVHDSRES ---
Discharge Summary Date of Admission Resident Creating Document: BERNIE NUNN RESIDENT August 19, 2024 at 20:36 Date of Discharge: Aug 23, 2024 Admitting Diagnosis Altered mental status Labs/Diagnostic Data: PATIENT: ADALI BELL ACCT: [id number] UNIT: [id number] : 1950 LOC: OVERFLOW ROOM / BED: [address] [place] [address] AGE / SEX: 73 / M ADM STATUS: ADM IN SERVICE 24 ORDERING PHYSICIAN: DEJAN FELDER PROCEDURE(s): ABPL - CT AB PEL WO CON-NO ORAL OR IV REASON: sepsis CLL ORDER NUMBER(s): [id number], ACCESSION NUMBER(s): [id number] Exam: CT CT AB PEL WO CON-NO ORAL OR IV History: sepsis CLL Comparison Study: None TECHNIQUE: Multidetector CT of the abdomen was performed from lung bases to pubic symphysis. Imaging was performed without IV contrast. Axial, coronal and sagittal multiplanar reformats were obtained from the axial data set by the technologist. Radiation Dose Information: CT Dose: CTDI volume is 1499 mGy. Dose-length product is 924.96 mGy*cm FINDINGS: Evaluation of solid organs is limited due to lack of intravenous contrast use. Findings: Lung Bases: No acute or significant lung base finding. Normal heart size. No pleural or pericardial effusion. Liver: The liver is normal in size. No focal lesions. Gallbladder and Biliary Tree: Unremarkable Spleen: Unremarkable Pancreas: The pancreas is grossly normal in appearance. Adrenal Glands: Unremarkable Kidneys: Kidneys are grossly normal without calculi or hydronephrosis. Bladder: Grossly unremarkable for degree of distention. Bowel: The stomach is grossly normal in appearance. Small bowel and colon are normal in caliber and distribution. The appendix is not visualized; however, no secondary findings of acute appendicitis identified. Ascites: Absent Lymphadenopathy: No mesenteric, retroperitoneal or periportal lymphadenopathy. Abdominal Wall and Mesentery: Unremarkable. Vasculature: The visualized abdominal aorta is normal in size and caliber. Evaluation of abdominal and pelvic vessels is limited due to lack of intravenous contrast. Pelvic Organs: Unremarkable Musculoskeletal: No aggressive focal bony lesions, acute fractures or dislocation. Soft tissues: Anterior to the abdominal aorta and inferior vena cava in the mid abdomen is a 6 x 3.1 x 3.6 cm soft tissue mass. (Noted in series 2, images 46- 57; series 601 images 54- 58.) is intra-abdominal masses noted level of L3. This may represent a lymph node mass or confluence of small-bowel mesenteric neoplasm. Repeat study with oral and IV contrast may be helpful. IMPRESSION: 1. Lobulated intraperitoneal mass at the level of L3 measuring 6 cm in length by 3 x 3 cm. This may represent a confluence of mesenteric lymph nodes or small- bowel mass. (Noted in series 2, images 46-57; series 601 images 54- 58.) 2. No findings to suggest bowel obstruction. 3. 2.4 cm fat containing right inguinal hernia. 4. Radiation optimization: All CT scans at this facility use at least one of these dose optimization techniques: automated exposure control mA and/or kV adjustment per patient size (includes targeted exams where dose is matched to clinical indication) or iterative reconstruction. ATED BY: ESAU CHIN Jr., DO DICTATED DATE/TIME: 08/19/242302 PATIENT: ADALI BELL ACCT: [id number] UNIT: [id number] : 1950 LOC: OVERFLOW ROOM / BED: [address] [place] [address] AGE / SEX: 73 / M ADM STATUS: ADM IN SERVICE 10 ORDERING PHYSICIAN: FORTINO SIERRA MD PROCEDURE(s): CXRP - CHEST PORTABLE REASON: cp ORDER NUMBER(s): [id number], ACCESSION NUMBER(s): [id number] CHEST RADIOGRAPH Indication: cp Technique: Single frontal view of the chest was obtained Comparison: CHEST PORTABLE on DOS: 04/13/21, CHEST PORTABLE on DOS: 04/05/21, CHEST PORTABLE on DOS: 04/03/21 FINDINGS: Lines and Tubes: None Lungs: No focal consolidation. diffuse interstitial prominence. Pleura: No effusion. No pneumothorax. Cardiomediastinal contours: Unremarkable Bones: No acute osseous abnormality. IMPRESSION: Pulmonary vascular congestion. Underlying infectious process can not be excluded. ATED BY: CATHERINE RIVERA DO DICTATED DATE/TIME: 08/19/242127 PATIENT: ADALI BELL ACCT: [id number] UNIT: [id number] : 1950 LOC: OVERFLOW ROOM / BED: [facility] / A AGE / SEX: 73 / M ADM STATUS: ADM IN SERVICE ORDERING PHYSICIAN: FORTINO SIERRA MD PROCEDURE(s): HWOCT - HEAD WITHOUT CONTRAST REASON: aloc ORDER NUMBER(s): [id number], ACCESSION NUMBER(s): [id number] EXAM: CT HEAD WITHOUT CONTRAST INDICATION: aloc TECHNIQUE: CT of the head without intravenous contrast. Radiation Dose Information: CT Dose: CTDI volume is 55.4 mGy. Dose-length product is 1086.71 mGy*cm The dose indicators for CT are the volume Computed Tomography (CT) Dose Index (CTDIvol) and the Dose Length Product (DLP), and are measured in units of mGy and mGy-cm, respectively. These indicators are not patient dose, but values generated from the CT scanner acquisition factors. The report includes radiation exposure data for exposures received during this examination. COMPARISON: None FINDINGS: There is no evidence of acute intracranial hemorrhage, extra-axial collection, mass effect, midline shift, herniation or hydrocephalus. The ventricles, sulci and cisterns are age appropriate. The rodas-white differentiation is intact. Patchy periventricular and subcortical white matter hypoattenuation is nonspecific but may be related to small vessel ischemic disease. Mucosal thickening maxillary and ethmoid sinuses bilaterally and right sphenoid bilaterally. The mastoid air cells are clear. The surrounding soft tissues and osseous structures are unremarkable.. IMPRESSION: 1. No acute intracranial hemorrhage 2. Bilateral maxillary ethmoid sphenoid sinusitis. 3. No acute territorial ischemia. ATED BY: ESAU CHIN Jr. DO DICTATED DATE/TIME: 08/19/242135 Laboratory Results Test 08/23/24 08:45 08/21/24 06:43 08/20/24 05:03 08/19/24 23:25 White Blood Count 25.2 10^3/uL (4.4-10.8) Red Blood Count 3.86 10^6/uL (4.5-5.90) Hemoglobin 13.4 g/dL (13.5-17.5) Hematocrit 38.7 % (41.0-53.0) Mean Corpuscular Volume 100.1 fL (80.0-100.0) Mean Corpuscular Hemoglobin 34.6 pg (28.0-32.0) Mean Corpuscular Hemoglobin Concent 34.6 g/dL (32.0-36.0) Red Cell Distribution Width 13.8 % (11.8-14.3) Platelet Count 141 10^3/uL (140-450) Mean Platelet Volume 7.7 fL (6.9-10.8) Neutrophils (%) (Auto) % (37.0-80.0) Lymphocytes (%) (Auto) % (10.0-50.0) Monocytes (%) (Auto) % (0.0-12.0) Basophils (%) (Auto) % (0.0-2.0) Neutrophils # (Auto) 10 ^3/uL (1.6-8.6) Lymphocytes # (Auto) 10 ^3/uL (0.4-5.4) Monocytes # (Auto) 10 ^3/uL (0-1.3) Differential Total Cells Counted 100.0 (100) Neutrophils % (Manual) 7 (37.0-80.0) Band Neutrophils % (Manual) 2 Lymphocytes % (Manual) 85 (10.0-50.0) Monocytes % (Manual) 2 (0-12) Eosinophils % (Manual) 0 (0-7) Basophils % (Manual) 0 (0.0-2.0) Metamyelocytes % (manual) 0 Myelocytes % (Manual) 0 Promyelocytes % (Manual) 0 Blast Cells % (Manual) 0 Reactive Lymphocytes 4 Platelet Estimate Decreased Macrocytosis Slight Sodium Level 141 mmol/L (136-145) Potassium Level 4.0 mmol/L (3.5-5.1) Chloride Level 110 mmol/L (98-107) Carbon Dioxide Level 23 mmol/L (20-31) Anion Gap 8 (5-15) Blood Urea Nitrogen 6 mg/dL (9-23) Creatinine 0.91 mg/dL (0.700-1.30) Glomerular Filtration Rate Calc 90 mL/min (>90) BUN/Creatinine Ratio 6.6 (10.0-20.0) Serum Glucose 104 mg/dL (74-106) Calcium Level 9.3 mg/dL (8.7-10.4) Vancomycin Level Trough 17.4 ug/mL (5-10) B-Type Natriuretic Peptide 39.31 pg/mL (0-100) Total Bilirubin 0.6 mg/dL (0.2-1.0) Aspartate Amino Transferase (AST) 15 U/L (13-40) Alanine Aminotransferase (ALT) 12 U/L (7-40) Alkaline Phosphatase 113 U/L (46-116) Total Protein 6.3 g/dL (5.7-8.2) Albumin 4.0 g/dL (3.2-4.8) Free Thyroxine (T4) Calculated 1.02 ng/dL (0.89-1.76) Free Triiodothyronine (T3) pg/mL 2.28 pg/mL (2.3-4.2) Influenza Type A Antigen Negative (Negative) Influenza Type B Antigen Negative (Negative) SARS-CoV-2 Antigen (Rapid) Negative (NEGATIVE) Test 08/19/24 20:53 08/19/24 16:52 08/19/24 16:38 Direct Bilirubin 0.3 mg/dL (<0.3) Ammonia 12 umol/L (11-32) Lactate Dehydrogenase 179 U/L (120-246) Vitamin B12 Level 805 pg/mL (211-911) Vitamin D 25-Hydroxy 38.8 ng/mL (30.0-100) Folic Acid 21.60 ng/mL (>5.38) Thyroid Stimulating Hormone (TSH) 0.55 uIU/mL (0.55-4.78) Lactic Acid Level 1.7 mmol/L (0.4-2.0) Plasma/Serum Blood Alcohol < 3.0 mg/dL (<10) Urine Color Yellow (Yellow) Urine Clarity Clear (Clear) Urine pH 7.0 (5.0-9.0) Urine Specific [place] 1.019 (1.001-1.035) Urine Protein Negative (Negative) Urine Ketones Negative (Negative) Urine Blood Negative /uL (Negative) Urine Nitrite Negative (Negative) Urine Bilirubin Negative (Negative) Urine Urobilinogen Normal mg/dL (Negative) Urine Leukocyte Esterase Negative /uL (Negative) Urine RBC 1 /hpf (0 - 3) Urine Microscopic WBC < 1 /HPF (0-3) Urine Squamous Epithelial Cells Few /hpf (<5) Urine Bacteria None seen /hpf (None Seen) Urine Glucose Normal mg/dL (Normal) Urine Opiates Screen Neg (NEGATIVE) Urine Fentanyl Screen Neg (NEGATIVE) Urine Barbiturates Screen Neg (NEGATIVE) Urine Phencyclidine Screen Neg (NEGATIVE) Urine Amphetamines Screen Neg (NEGATIVE) Urine Benzodiazepines Screen Neg (NEGATIVE) Urine Cocaine Screen Neg (NEGATIVE) Urine Cannabinoids Screen Neg (NEGATIVE) Other Laboratory Tests 08/23/24 08:45 Brief Hx & Hospital Course: History of Present Illness A 73y old male with a known history of chronic lymphocytic leukemia, COPD, DVT who was brought in by his daughter this afternoon due to new-onset confusion and abnormal behavior. According to the daughter, the patient was acting weird and confused, which was a sudden change from baseline. He was drinking cleaning products from the kitchen. There were no reported seizures, no urinary or fecal incontinence, and no loss of consciousness. The daughter denies recent trauma or falls. In addition, the patient has had a productive cough for the past 2 days. No fever was reported at home. But at admission, temperature was found more than 100. There has been no recent travel, known sick contacts, or antibiotic use. Daughter is reliable historian and reports good adherence to home medications Past Medical History: Chronic lymphocytic leukemia, COPD, Hypertension, CHF with preserved EF? , Depression/anxiety, History of thrombocytopenia, History of DVT (on anticoagulation), Glaucoma and schizophrenia Past surgical history: Nasal septum repair Social History: lives at home with children, smoked in his twenties and abuse alcohol in his thirties. Family history: noncontributory Brief Hospital course Patient is a 73-year-old male was broughto the ED by his daughter due to altered mental status. Patient has a history of CLL, COPD, and COVID pneumonia in 2020 complicated by DVT and schizophrenia for which she takes olanzapine. Prior to coming to the ED, patient unknowing consumed a cleaning liquid mistaking it for water. The change in mental status was sudden change from his baseline. At home patient felt feverish, have been coughing a lot daily without any sputum production thus he was brought to the ED. Initial temperature measured 101.6, HR: 98; WBC: 25.2. CT head revealed No acute intracranial hemorrhage and Bilateral maxillary ethmoid sphenoid sinusitis. Chest x-ray revealed Pulmonary vascular congestion. Patient was started on antibiotics. and feel better. Patient also had CT abdomen which revealed Lobulated intraperitoneal mass at the level of L3 measuring 6 cm in length by 3 x 3 cm. This may represent a confluence of mesenteric lymph nodes or small-bowel mass. Surgery was consulted regarding the intraperitoneal mass however surgery recommended no surgical intervention brother advised that patient be seen by Oncology for mass evaluation. Also given the patient concerns consumption of this cleaning liquid her voice had changed and with the concern for probably pharyngeal edema GI was consulted for evaluation. GI saw patient determined that patient was able to drink liquid therefore the advised the patient continue to feed on clear liquid onto his fully stable then he should follow up with GI for an endoscopy later from patient is fully stable. Review of system Constitutional: Denies fever no chills no feeling of malaise HEENT: Denies headache, ear pain, ear discharges, conjunctivitis, nasal discharge throat pain Cardiovascular: Denies chest pain, palpitation, orthopnea, PND, or pedal edema Respiratory: Denies shortness of breath, cough cough, sputum production, hemoptysis, GI: Denies abdominal pain, nausea, vomiting, diarrhea, hematemesis, hematochezia, : Denies frequency, urgency, hematuria, Endocrine: Denies unintentional weight gain or weight loss, feeling of hot flashes, [place]: Denies easy bruising, bleeding disorders, epistaxis Musculoskeletal: Denies joint pains, muscle aches Psych: No evidence of depression, iron, suicidal ideation Examination on the day of discharge: General Appearance: Alert, Oriented X3, Cooperative, No acute distress HEENT: Atraumatic, PERRLA, EOMI, Mucous membrane moist/pink Respiratory: Clear to auscultation, Normal air movement Cardiovascular: Regular rate, Normal S1, Normal S2, No murmurs, no chest wall tenderness Abdominal: NO distention, no tenderness, bowel sounds present, no scars noted Extremities: No clubbing, No cyanosis, No edema, Normal pulses, No tenderness/swelling Skin: No rashes, No breakdown, No significant lesion Neuro: Normal gait, Normal speech, Strength at 5/5 X4 ext, Normal tone, Sensation intact, Cranial nerves 3-12 NL, Reflexes 2+ Psych/Mental Status: Mental status NL, Mood NL Assessment Sepsis due to possible pneumonia gram+/gram- Acute metabolic encephalopathy due to sepsis Pneumonia gram+/gram - Pneumonitis Chronic lymphocytic leukemia. Chronic obstructive pulmonary disease, not in exacerbation; home oxygen Hypertensive heart disease with diastolic dysfunction H/o Left leg deep venous thrombosis. Leukocytosis due to CLL Thrombocytopenia due to CLL Depression/anxiety Secondary hypercoagulable state Lobulated intraperitoneal mass at the level of L3 measuring 6 cm in length by 3 x 3 cm Discharge plan Stable for discharge Continue soft liquid diet gradually advanced as tolerated Follow up at the discharge Clinic for re-evaluation Follow up with an oncologist for further evaluation Follow up in GI for endoscopies once stable Goals of care discussed with the patient and his daughter for 20 minutes; full code Discharge plan discussed with Dr. Krause Consults/Reason for consult Surgery: lymphadenopathy GI: for raspy voice in the setting of drinking a carpet cleaner liquid Condition at Discharge: Stable Final Diagnosis/Problems List Sepsis due to possible pneumonia gram+/gram- Acute metabolic encephalopathy due to sepsis Pneumonia gram+/gram - Pneumonitis Chronic lymphocytic leukemia. Chronic obstructive pulmonary disease, not in exacrebation Hypertensive heart disease with diastolic dysfunction H/o Left leg deep venous thrombosis. Thrombocytopenia and leukocytosis due to CLL Depression/anxiety Secondary hypercoagulable state Lobulated intraperitoneal mass at the level of L3 measuring 6 cm in length by 3 x 3 cm; to discuss with primary oncologist Discharge Disposition: Home (Home oxygen) Discharge Instruct/Medications Diet: See Comment Diet comment: continue full liquid diet and advance as tolerate Activity: No Restrictions, As Tolerated Follow Up/Referral: 7 days at the discharge clinic; PCP within one week; primary oncologist within 2 to 4 weeks Medications: Keflex 500mg bid 3 days Discharge Statement: "Patient was advised to return to the ER or call 911 if any headaches, dizziness, shortness of breath, chest pain, abdominal pain, bleeding, fevers, or worsening of medical condition. Patient was counseled about treatment plan, medications, possible side effects, patientverbalized understanding. All questions were answered to the best of my ability. This discharge took greater then 30 minutes in planning, reviewing documentation, counseling the patient, and discussing with other team members." ASSESSMENT ASSESSMENT Assessment Sepsis due to possible pneumonia gram+/gram- Acute metabolic encephalopathy due to sepsis Pneumonia gram+/gram - Pneumonitis Chronic lymphocytic leukemia. Chronic obstructive pulmonary disease, not in exacerbation Hypertensive heart disease with diastolic dysfunction H/o Left leg deep venous thrombosis. Thrombocytopenia. Depression/anxiety Secondary hypercoagulable state Lobulated intraperitoneal mass at the level of L3 measuring 6 cm in length by 3 x 3 cm Addendum Addendum Addendum I was physically present for the quinones portions of the service provided to patient by THE RESIDENT. I have reviewed the documentation, discussed the case with resident and agree with the resident's documentation except as noted. Also the patient's clinical case was discussed with the patient's nurse. This medical document was created using an electronic medical record system with computerized dictation system. Although this document has been carefully reviewed, there might still be some phonetic and typographical errors. These areas are purely typographical due to imperfections of the software programs, and do not reflect any compromise in the patient's medical care. Late signature. Date of Service: Aug 23, 2024 Billing Provider: MERLENE KRAUSE MD Common Visit Codes: 33995-BBC/OBS DISCH DAY >30min Secondary Visit Codes: 82527-[id number] CARE PLAN 30 MINUTES (20 minutes) BERNIE NUNN RESIDENT Aug 23, 2024 18:52 MERLENE KRAUSE MD Aug 24, 2024 05:30
== END 2024-08-23 14:30 | disposition home or self-care (01) | DRG 871 ==
LOC: ER 16:24 → OVERFLOW 20:36 → TELE-EAST 08-20 15:30 → EAST 08-21 10:00
PROVIDERS: ADMIT Hospitalist; ATTEND Emergency Medicine
DX: A41.50 Gram-negative sepsis, unspecified (principal); G93.41 Metabolic encephalopathy; J15.69 Pneumonia due to other Gram-negative bacteria; J15.9 Unspecified bacterial pneumonia; D68.69 Other thrombophilia; C91.10 Chronic lymphocytic leukemia of B-cell type not having achieved remission; J44.0 Chronic obstructive pulmonary disease with (acute) lower respiratory infection; I50.30 Unspecified diastolic (congestive) heart failure; D69.6 Thrombocytopenia, unspecified; I11.0 Hypertensive heart disease with heart failure; R13.10 Dysphagia, unspecified; J98.2 Interstitial emphysema; Z20.822 Contact with and (suspected) exposure to COVID-19; F32.A Depression, unspecified; F20.9 Schizophrenia, unspecified; F41.9 Anxiety disorder, unspecified; Z79.891 Long term (current) use of opiate analgesic; Z79.899 Other long term (current) drug therapy; Z79.01 Long term (current) use of anticoagulants; Z86.718 Personal history of other venous thrombosis and embolism; Z83.3 Family history of diabetes mellitus; Z86.16 Personal history of COVID-19
CPT/HCPCS: 36415; 70450; 71045; 74176; 80048; 80053; 80076; 80202; 80307; 80320; 81001; 82140; 82306; 82565; 82607; 82746; 83605; 83615; 83880; 84439; 84443; 84481; 85007; 85027; 87040; 87070; 87081; 87086; 87205; 87426; 87804; 93005; 96360; 96361; G0378; J2470